=== PATIENT | female | born 1965 | race Caucasian/White ===

== ENCOUNTER 2018-01-30 10:19 | Emergency (ER) | payer SELFPAY ==
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
[2018-01-30] MEDS ORDERED: HYDROCODONE/APAP 10/325 TAB ONE (10:46)
[2018-01-30] MEDS ORDERED: TETANUS & DIPHTHERIA TOX,ADULT 0.5 ML VIAL ONE (10:46)
== END 2018-01-30 11:05 | disposition home or self-care (01) ==
LOC: ER 10:19
DX: T22.132A Burn of first degree of left upper arm, initial encounter (principal); K75.9 Inflammatory liver disease, unspecified; F17.210 Nicotine dependence, cigarettes, uncomplicated; T31.0 Burns involving less than 10% of body surface; X08.8XXA Exposure to other specified smoke, fire and flames, initial encounter; Y93.9 Activity, unspecified; Y92.009 Unspecified place in unspecified non-institutional (private) residence as the place of occurrence of the external cause; Y99.9 Unspecified external cause status; Z23 Encounter for immunization
CPT/HCPCS: 90714; 99283

== ENCOUNTER 2021-08-15 15:25 | Emergency (ER) | payer SELFPAY ==
--- OUTSIDE RECORDS SUMMARY | 2021-08-15 15:29 | XMS REPORT | Continuity of Care Document ---
:1965 Author Organization [facility] t Address [address] [place] [address] Care Team Providers Name Role Phone Pcp, Does Not Have A Primary Care Physician Kassy TORRES Attending Clinician Unavailable Jessica MERCEDES S Attending Clinician Andres MERCEDES Attending Clinician Doctor Unassigned, Name Attending Clinician Unavailable Payers Payer Name Policy Type Policy Number Effective Date Expiration Date S ource Problems Condition Condition Condition Status Onset Resolution Last Treating Co mments Source Name Details Category Date Date Treatment Clinician Date No known No known Disease Unive rs active active ity of problems problems [facility] Allergies, Adverse Reactions, Alerts Allergy Allergy Status Severity Reaction(s) Onset Inactive Treating Comm ents Source Name Type Date Date Clinician NO KNOWN Drug Active Univers ALLERGIE Class ity of S [facility] Social History Social Habit Start Date Stop Date Quantity Comments Source History [facility] University o f [facility] History [facility] University o f Alcohol Std Drinks [facility] History [facility] University o f Alcohol Binge [facility] [place] History of tobacco Cigarette Smoker University of use [facility] Exposure to Not sure University of SARS-CoV-2 (event) [facility] Alcohol intake 2020-05-19 2020-05-19 Current University of 00:00:00 00:00:00 non-drinker of [facility] alcohol Branch (finding) Cigarettes smoked 2012-10-07 2012-10-07 Univers ity of current (pack per 00:00:00 00:00:00 [facility] - Reported Branch Cigarette 2012-10-07 2012-10-07 University of pack-years 00:00:00 00:00:00 [facility] Tobacco use and 2012-10-07 2012-10-07 Never used Universit y of exposure 00:00:00 00:00:00 [facility] Alcohol Comment 2012-10-07 2012-10-07 H/O alcohol Universi ty of 00:00:00 00:00:00 abuse [facility] Sex [birth year] Universit y of 00:00:00 00:00:00 [facility] Smoking Status Start Date Stop Date Source Current every day smoker 2012-10-07 00:00:00 Uni versity of [facility] Medications Ordered Filled Start Stop Current Ordering Indication Dosage Frequency Signature Comments Components Source Medication Medication Date Date Medication? Clinician (SIG) Name Name ondansetron No 4mg 4 mg, Univ ers (ZOFRAN-ODT 08-14 Oral, ity of ) 13:15: 12:08 ONCE, 1 [place] disintegrat 00 :00 dose, On Medi melly ing tablet [facility] 4 mg 08/14/21 at 0715, Routine FENTanyl PF No 50ug 50 mcg, Un jair (SUBLIMAZE 08-14 Intramuscu it y of (PF)) 13:15: 12:06 lar, ONCE, [place] injection 00 :00 1 dose, On Medi melly 50 mcg [facility] 08/14/21 at 0715, Routine butalbital- Yes [id number] 1{tbl} Take 1 Univers acetaminoph 1-17 tablet by ity of en-caff 00:00: mouth [place] 50-325-40 00 every 6 Medical mg tablet (six) Branch hours as needed (Headache) . ondansetron 2020- No 4mg 4 mg, Univ ers (ZOFRAN 10-09-14 Intramuscu ity o f (PF)) 02:30: 01:29 lar, ONCE, [place] injection 4 00 :00 1 dose, Medic al mg Sat Branch 10/08/20 at 2030, JACKI NaCl 0.9% 2020- No 1000mL at 999 Uni vers (NS) bolus 3-13 03-14 mL/hr, ity of infusion 23:00: 01:07 1,000 mL, Les as 1,000 mL 00 :00 IV Medical Infusion, Branch ONCE, 1 dose, 10/08/20 at 1700, STAT ondansetron 2020- No 4mg 4 mg, Slow Univers (ZOFRAN 3-13 03-13 IV Push, ity of (PF)) 23:00: 23:31 ONCE, 1 [place] injection 4 00 :00 dose, Sat Med ical mg 10/08/20 at Branch 1700, JACKI ondansetron Yes [id number] 4mg Take 1 Univers 4 mg 3-13 tablet by ity of disintegrat 00:00: mouth [place] ing tablet 00 every 4 Medica l (four) Branch hours as needed for Nausea and Vomiting (N/V). dicyclomine Yes [id number] 10mg Take 1 Univers (BENTYL) 10 3-13 capsule by it y of mg capsule 00:00: [place] (four) Medical times Branch daily. ondansetron Yes [id number] 4mg Take 1 Univers 4 mg 3-13 tablet by ity of disintegrat 00:00: mouth [place] ing tablet 00 every 4 Medica l (four) Branch hours as needed for Nausea and Vomiting (N/V). dicyclomine Yes [id number] 10mg Take 1 Univers (BENTYL) 10 3-13 capsule by it y of mg capsule 00:00: [place] (four) Medical times Branch daily. iohexol 2019-07- No 120mL 120 mL, Unive rs (OMNIPAQUE 0-23 05-20 Intravenou it y of 350 02:45: 02:45 s, ONCE, 1 [place] BULK-150 00 :00 dose, Lou Medica l mL) 05/19/20 Branch injection at 2145, 120 mL Routine acetaminoph Yes 1{tbl} Take 1 Un jair en-codeine 6-09 tablet by ity of 300-30 mg 00:00: mouth [place] tablet 00 every 6 Medical (six) Branch hours as needed for Pain (scale 4-6) for up to 30 doses. acetaminoph 2017-0 Yes 1{tbl} Take 1 Un jair en-codeine 6-09 tablet by ity of 300-30 mg 00:00: mouth [place] tablet 00 every 6 Medical (six) Branch hours as needed for Pain (scale 4-6) for up to 30 doses. acetaminoph Yes 1{tbl} Take 1 Un jair en-codeine 6-09 tablet by ity of 300-30 mg 00:00: mouth [place] tablet 00 every 6 Medical (six) Branch hours as needed for Pain (scale 4-6) for up to 30 doses. acetaminoph Yes 1{tbl} Take 1 Un jair en-codeine 6-09 tablet by ity of 300-30 mg 00:00: mouth [place] tablet 00 every 6 Medical (six) Branch hours as needed for Pain (scale 4-6) for up to 30 doses. acetaminoph Yes 1{tbl} Take 1 Un jair en-codeine 6-09 tablet by ity of 300-30 mg 00:00: mouth [place] tablet 00 every 6 Medical (six) Branch hours as needed for Pain (scale 4-6) for up to 30 doses. VITAMIN B Yes 1{tbl} Take 1 Tab Univers COMPLEX 3-12 by mouth ity of ORAL 21:36: daily. [address] DOCOSAHEXAN Yes 1{tbl} Take 1 Tab Univers OIC 3-12 by mouth ity of ACID/EPA 21:36: daily. [place] (FISH OIL 38 Medical ORAL) [place] VITAMIN B Yes 1{tbl} Take 1 Tab Univers COMPLEX 3-12 by mouth ity of ORAL 21:36: daily. [address] DOCOSAHEXAN Yes 1{tbl} Take 1 Tab Univers OIC 3-12 by mouth ity of ACID/EPA 21:36: daily. [place] (FISH OIL 38 Medical ORAL) [place] VITAMIN B Yes 1{tbl} Take 1 Tab Univers COMPLEX 3-12 by mouth ity of ORAL 21:36: daily. [address] DOCOSAHEXAN Yes 1{tbl} Take 1 Tab Univers OIC 3-12 by mouth ity of ACID/EPA 21:36: daily. [place] (FISH OIL 38 Medical ORAL) [place] VITAMIN B Yes 1{tbl} Take 1 Tab Univers COMPLEX 3-12 by mouth ity of ORAL 21:36: daily. [place] 38 Medical Branch DOCOSAHEXAN Yes 1{tbl} Take 1 Tab Univers OIC 3-12 by mouth ity of ACID/EPA 21:36: daily. [place] (FISH OIL 38 Medical ORAL) Branch RUTIN/HESP/ Yes 2{tbl} Take 2 Un jair BIOFLAV/C/H 3-12 Tabs by ity o f ERB#196 21:35: mouth [place] (BIOFLEX 30 daily. Medical ORAL) Branch RUTIN/HESP/ Yes 2{tbl} Take 2 Un jair BIOFLAV/C/H 3-12 Tabs by ity o f ERB#196 21:35: mouth [place] (BIOFLEX 30 daily. Medical ORAL) Branch RUTIN/HESP/ Yes 2{tbl} Take 2 Un jair BIOFLAV/C/H 3-12 Tabs by ity o f ERB#196 21:35: mouth [place] (BIOFLEX 30 daily. Medical ORAL) Branch RUTIN/HESP/ Yes 2{tbl} Take 2 Un jair BIOFLAV/C/H 3-12 Tabs by ity o f ERB#196 21:35: mouth [place] (BIOFLEX 30 daily. Medical ORAL) Branch ASPIRIN Yes 1{tbl} Take 1 Tab Un jair (ASPIR-81 3-12 by mouth ity of ORAL) 21:34: daily. [place] [address] Medical Branch Ibuprofen Yes 4{tbl} Take 4 Univ ers (ADVIL 3-12 Tabs by ity of LIQUI-GEL) 21:34: mouth [place] 200 mg Cap 53 daily. Medical Branch Acetaminoph Yes 2{tbl} Take 2 Un jair en 3-12 Tabs by ity of (NON-ASPIRI 21:34: mouth [place] N EXTRA 53 needed. Medical STRENGTH) Branch 500 mg Cap OMEPRAZOLE Yes 1{tbl} Take 1 Tab Univers (PRILOSEC 3-12 by mouth ity of ORAL) 21:34: daily. [place] 53 Medical Branch ASPIRIN Yes 1{tbl} Take 1 Tab Un jair (ASPIR-81 3-12 by mouth ity of ORAL) 21:34: daily. [address] Ibuprofen Yes 4{tbl} Take 4 Univ ers (ADVIL 3-12 Tabs by ity of LIQUI-GEL) 21:34: mouth [place] 200 mg Cap 53 daily. [facility] Branch Acetaminoph Yes 2{tbl} Take 2 Un jair en 3-12 Tabs by ity of (NON-ASPIRI 21:34: mouth [place] EXTRA 53 needed. Medical STRENGTH) Branch 500 mg Cap OMEPRAZOLE Yes 1{tbl} Take 1 Tab Univers (PRILOSEC 3-12 by mouth ity of ORAL) 21:34: daily. [address] ASPIRIN Yes 1{tbl} Take 1 Tab Un jair (ASPIR-81 3-12 by mouth ity of ORAL) 21:34: daily. [address] Ibuprofen Yes 4{tbl} Take 4 Univ ers (ADVIL 3-12 Tabs by ity of LIQUI-GEL) 21:34: mouth [place] 200 mg Cap 53 daily. [facility] Acetaminoph Yes 2{tbl} Take 2 Un jair en 3-12 Tabs by ity of (NON-ASPIRI 21:34: mouth [place] EXTRA 53 needed. Medical STRENGTH) Branch 500 mg Cap OMEPRAZOLE Yes 1{tbl} Take 1 Tab Univers (PRILOSEC 3-12 by mouth ity of ORAL) 21:34: daily. [address] ASPIRIN Yes 1{tbl} Take 1 Tab Un jair (ASPIR-81 3-12 by mouth ity of ORAL) 21:34: daily. [address] Ibuprofen Yes 4{tbl} Take 4 Univ ers (ADVIL 3-12 Tabs by ity of LIQUI-GEL) 21:34: mouth [place] 200 mg Cap 53 daily. [facility] Acetaminoph Yes 2{tbl} Take 2 Un jair en 3-12 Tabs by ity of (NON-ASPIRI 21:34: mouth [place] EXTRA 53 needed. Medical STRENGTH) Branch 500 mg Cap OMEPRAZOLE Yes 1{tbl} Take 1 Tab Univers (PRILOSEC 3-12 by mouth ity of ORAL) 21:34: daily. [address] VITAMIN B Yes 1{tbl} Take 1 Tab Univers COMPLEX 3-12 by mouth ity of ORAL 16:36: daily. [place] [address] Medical Branch DOCOSAHEXAN Yes 1{tbl} Take 1 Tab Univers OIC 3-12 by mouth ity of ACID/EPA 16:36: daily. [place] (FISH OIL 38 Medical ORAL) Branch RUTIN/HESP/ Yes 2{tbl} Take 2 Un jair BIOFLAV/C/H 3-12 Tabs by ity o f ERB#196 16:35: mouth [place] (BIOFLEX 30 daily. Medical ORAL) Branch ASPIRIN Yes 1{tbl} Take 1 Tab Un jair (ASPIR-81 3-12 by mouth ity of ORAL) 16:34: daily. [address] Branch Ibuprofen Yes 4{tbl} Take 4 Univ ers (ADVIL 3-12 Tabs by ity of LIQUI-GEL) 16:34: mouth [place] 200 mg Cap 53 daily. Medical Branch Acetaminoph Yes 2{tbl} Take 2 Un jair en 3-12 Tabs by ity of (NON-ASPIRI 16:34: mouth [place] EXTRA 53 needed. Medical STRENGTH) Branch 500 mg Cap OMEPRAZOLE Yes 1{tbl} Take 1 Tab Univers (PRILOSEC 3-12 by mouth ity of ORAL) 16:34: daily. [address] Immunizations Ordered Filled Immunization Date Status Comments Sour e Immunization Name Name [facility] 2012-10-07 Completed [facility] 00:00:00 [facility] TDAP 2012-10-07 Completed [facility] 00:00:00 [facility] TDAP 2012-10-07 Completed University 00:00:00 [facility] TDAP 2012-10-07 Completed University 00:00:00 [facility] TDAP 2012-10-07 Completed [facility] 00:00:00 [facility] Vital Signs Vital Name Observation Time Observation Value Comments Source Systolic blood 2021-08-14 11:46:00 120 mm[Hg] Univer sity of pressure [facility] Diastolic blood 2021-08-14 11:46:00 72 mm[Hg] Unive rsity of pressure [facility] Heart rate 2021-08-14 11:46:00 84 /min [facility] [place] [facility] Body temperature 2021-08-14 11:46:00 36.67 Dayanna Univ ersity [facility] [place] [facility] Respiratory rate 2021-08-14 11:46:00 18 /min Univ [facility] [place] [facility] Body height 2021-08-14 11:46:00 154.9 cm [facility] [place] [facility] Body weight 2021-08-14 11:46:00 59.194 kg [facility] [place] [facility] BMI 2021-08-14 11:46:00 24.66 kg/m2 [facility] [place] [facility] Oxygen saturation in 2021-08-14 11:46:00 100 /min University of Arterial blood by [place] [employer] melly Pulse oximetry Branch Systolic blood 2020-10-09 01:31:00 121 mm[Hg] Univer sity of pressure [place] [facility] Diastolic blood 2020-10-09 01:31:00 74 mm[Hg] Unive rsity of pressure [place] [facility] Heart rate 2020-10-09 01:31:00 85 /min [facility] [place] [facility] Respiratory rate 2020-10-09 01:31:00 17 /min [facility] [place] [facility] Oxygen saturation in 2020-10-09 01:31:00 99 /min University of Arterial blood by [place] [employer] melly Pulse oximetry Branch Body temperature 2020-10-08 21:30:00 36.06 Dayanna [facility] [place] [facility] Body weight 2020-10-08 21:30:00 58.968 kg [facility] [place] [facility] BMI 2020-10-08 21:30:00 24.56 kg/m2 [facility] [place] [facility] Systolic blood 2020-05-20 03:00:00 127 mm[Hg] Univer sity of pressure [place] [facility] Diastolic blood 2020-05-20 03:00:00 77 mm[Hg] Unive rsity of pressure [place] [facility] Heart rate 2020-05-20 03:00:00 63 /min [facility] [place] [facility] Respiratory rate 2020-05-20 03:00:00 22 /min Univ [facility] [place] [facility] Oxygen saturation in 2020-05-20 03:00:00 98 /min University of Arterial blood by [place] [employer] melly Pulse oximetry Branch Body temperature 2020-05-20 00:10:00 37.5 Dayanna [facility] [place] [facility] Body weight 2020-05-20 00:10:[address] [facility] BMI 2020-05-20 00:10:00 22.11 kg/m2 [facility] Procedures Procedure Date / Time Performing Clinician Source Performed CT HEAD WO CONTRAST 2021-08-14 12:17:47 Tod Torres [facility] CONSENT/REFUSAL FOR 2021-08-14 11:37:36 Doctor Unassigned, No Un [facility] DIAGNOSIS AND TREATMENT Name [facility] CT ABDOMEN PELVIS WO 2020-10-09 00:25:25 Tim Campos [facility] CONTRAST [facility] URINALYSIS 2020-10-09 00:00:00 Andres Tim [facility] ADC / LCC - DRUG SCREEN 2020-10-09 00:00:00 Tim Campos [facility] TRIAGE [facility] LIPASE 2020-10-08 23:09:00 Andres [facility] HEPATIC FUNCTION PANEL 2020-10-08 23:09:00 Tim Campos [facility] ([id number]) (ALB,T.PRO,BILI [facility] T,BU/BC,ALT,AST,ALK PHOS) BASIC METABOLIC PANEL 2020-10-08 23:09:00 Tim Campos [facility] (NA, K, CL, CO2, Medical Branch GLUCOSE, BUN, CREATININE, CA) ETHANOL 2020-10-08 23:09:00 Tim Campos [facility] CBC WITH DIFF 2020-10-08 23:09:00 Tim Campos [facility] PROTHROMBIN TIME / INR 2020-10-08 23:09:00 Tim Campos [facility] ACTIVATED PARTIAL 2020-10-08 23:09:00 [facility] NOTICE OF PRIVACY 2020-10-08 21:27:27 Doctor Unassigned, No [facility] PRACTICES [facility] CONSENT/REFUSAL FOR 2020-10-08 21:23:03 Doctor Unassigned, No [facility] CT ABDOMEN PELVIS W 2020-05-20 02:31:58 Tod Torres [facility] CONTRAST [facility] LIPASE 2020-05-20 00:34:00 Tod Torres [facility] TROPONIN I 2020-05-20 00:34:00 Tod Torres [facility] COMP. METABOLIC PANEL 2020-05-20 00:34:00 Tod Torres [facility] ([id number]) [facility] CBC WITH DIFF 2020-05-20 00:34:00 Tod Torres [facility] URINALYSIS 2020-05-20 00:34:00 Tod Torres [facility] EKG-12 LEAD 2020-05-20 00:14:17 Tod Torres [facility] NOTICE OF PRIVACY 2020-05-19 23:59:58 Doctor Unassigned, No Univ [facility] PRACTICES Name [facility] CONSENT/REFUSAL FOR 2020-05-19 23:59:43 [facility], No [facility] Encounters Start End Encounter Admission Attending Care Care Encounter Source Date/Time Date/Time Type Type Clinicians Facility Department ID 2021-08-14 2021-08-14 Emergency X [facility] ERT [id number] Univers 05:49:00 [facility]00[facility] 2021-08-14 2021-08-14 Emergency [facility] [id number] Univers 05:49:00 07:00:00 Tod LIMA [id number] ity of [place] [address] [place] [id number] 2020-10-08 2020-10-08 Emergency Campos, [facility] [id number] Univers 15:33:00 19:53:00 Tim Lima [id number] i ty of [place] [address] [place] [address] [id number] [place] [address] Branch 2020-10-08 2020-10-08 Emergency X [facility] ERT [id number] Univers 15:24:00 15:24:00 ity of [facility] 2020-10-08 2020-10-08 Orders Doctor JOSELITO [id number] Univers 00:00:00 00:00:00 Only Unassigned, MICHELL [id number] ity of [facility] 4.2.7.2.686 Les as [id number] [facility] 009 [place] 2020-05-19 2020-05-19 Emergency [facility], [facility] [id number] Univers 19:12:00 23:04:00 Tod [place] [id number] ity of [place] 4.2.7.2.686 [facility] [id number] [facility] 084 [place] 2020-05-19 2020-05-19 Emergency X [facility] ERT [id number] Univers 19:00:00 19:00:00 ity [facility] 2020-05-19 2020-05-19 Orders Doctor JOSELITO [id number] Univers 00:00:00 00:00:00 Only Unassigned, MICHELL [id number] ity of [facility] 4.2.7.2.686 Les as [id number] [address] Results Test Description Test Time Test Comments Results Result Comments Source [facility] - DRUG SCREEN TRIAGE 2020-10-09 01:07:36 Test Item Value Reference Range Interpretation Comme nts BENZO U (test code = 1081184839) Negative Negative LUTHER U (test code = 6723983473) Negative Negative AMPHET (test code = 0798239861) Presumptive Positive Negative A THC (test code = 8363138131) Negative Negative METHADONE (test code = 9253274015) Negative Negative Meth U (test code = 1146952999) Presumptive Positive Negative A OPIATES (test code = 9456401454) Negative Negative Cocaine Metabolite (test code = Negative Negative 4359401823) PROPOXY (test code = 0561879485) Negative Negative Tric U (test code = 8084523054) Negative Negative PCP (test code = 4473270309) Negative Negative OXYCOD (test code = 2259800605) Negative Negative ALMA (test code = ALMA) Urine Drug Cutoff Ranges Benzodiazepines: ? ? 150 ng/mLBarbiturates: ?200 ng/mLAmphetamine: ? 500 ng/mLCannabinoids: ?50 ?ng/mLMethadone: ? 200 ng/mLMethamphetamine: ? ? 500 ng/mL Opiates: ? 100 ng/mL or 2000 ng/mLCocaine: ? 150 ng/mLPropoxyphene: ?300 ng/mLTricyclics: ?300 ng/mLOxycodone: ? 100 ng/mLPCP: ? 25 ?ng/mL The results are to be used only for medical (i.e., treatment) purposes. Unconfirmed screening results must not be used for non-medical purposes (e.g., employment testing, legal testing). Lab Interpretation (test code = Abnormal 26640-4) [facility] 00:59:40 Test Item Value Reference Range Interpretation Comments APPEARANCE (test code = Clear Clear 5204481731) COLOR (test code = Yellow Yellow 0184270353) PH (test code = 4.8-8.0 1212378083) SP GRAVITY (test code = 1.003-1.030 4732825723) GLU U QUAL (test code = Normal Normal 3315960621) BLOOD (test code = Negative Negative 1426784513) KETONES (test code = Negative Negative 0231844659) PROTEIN (test code = Negative Negative 2887-8) UROBILIN (test code = Normal Normal 4653341733) BILIRUBIN (test code = Negative Negative 0781901691) NITRITE (test code = Negative Negative 3944671517) LEUK JOHANNA (test code = Negative Negative 1562492936) RBC/HPF (test code = See_Comment H [Autom ated message] 4069630736) The system [employer] generated this result transmitted ref erence range: 0 - 3 HP F. The reference range was not used to int erpret this result as normal/abnormal . WBC/HPF (test code = See_Comment [Autom ated message] 8933113171) The system [employer] generated this result transmitted ref erence range: 0 - 5 HP F. The reference range was not used to int erpret this result as normal/abnormal . BACTERIA (test code = Few Negative A 5641988158) MUCOUS (test code = Slight Negative LPF A 2921196962) SQ EPITH (test code = HPF 3698354301) HYAL CAST (test code = See_Comment [Aut omated message] 0074385725) The system [employer] generated this result transmitted ref erence range: <=2 LPF. The reference range was not used to int erpret this result as normal/abnormal . Lab Interpretation (test Abnormal code = 44909-8) [facility] [id number] 00:46:29 No acute abdominal pelvic process. No hydronephrosis or radiopaque nephrolithiasis. Preliminary Report Dictated by Resident: Rohan Kohli ?MD Nadege., have reviewed this study and agree withthe above report.EXAM: CT ABDOMEN AND PELVIS WITHOUT CONTRAST HISTORY: Pt reports that she ate at [employer] and ate some "fried okra andthen started having profuse nausea and vomiting.? COMPARISON: CT abdomen and pelvis 04/19/2020 and 01/04/2017. TECHNIQUE AND FINDINGS: Contiguous axial imaging from the level of the lungbases through the proximal thighs was performed without the intravenousadministration of contrast. Coronal and sagittal reconstructions wereobtained. FINDINGS: Limited evaluation of internal organs due to lack of IV contrast. LOWER THORAX: A 1.2 cm right middle lobe calcified granuloma isredemonstrated. No cardiomegaly. LIVER: No focal hepatic lesions. ?Normal liver contour. GALLBLADDER AND BILIARY TREE: No biliary ductal dilation. ?No gallbladderwall thickening. SPLEEN: No splenomegaly. PANCREAS: No ductal dilation or masses. ADRENAL GLANDS: No adrenal nodules. KIDNEYS: No hydronephrosis, stones, or contour deforming masses. PERITONEUM AND RETROPERITONEUM: No free air or fluid. LYMPH NODES: No lymphadenopathy. GI TRACT: No dilation or wall thickening. The appendix is unremarkable(2:99). Colonic diverticulosis with no signs of acute diverticulitis. PELVIS/BLADDER: Unremarkable. VESSELS: Mild aortoiliac atherosclerotic calcification. BONES AND SOFT TISSUES: No suspicious lytic or sclerotic bony lesions.Dextrocurvature of the lumbar spine is seen. [facility], Radiant ResultsInft User - 10/08/2020 6:47 PM CSTEXAM: CT ABDOMEN AND PELVIS WITHOUT CONTRASTHISTORY: Pt reports that she ate at [employer] and ate some "fried okra andthen started having profuse nausea and vomiting.?COMPARISON: CT abdomen and pelvis 04/19/2020 and 01/04/2017.TECHNIQUE AND FINDINGS: Contiguous axial imagi ng from the level of the lungbases through the proximal thighs was performed without the intravenousadministration of contrast. Coronal and sagittal reconstructions wereobtained.FINDINGS:Limited evaluation of internal organs due to lack of IV contrast.LOWER THORAX: A 1.2 cm right middle lobe calcified granuloma isredemonstrated. No cardiomegaly.LIVER: No focal hepatic lesions. Normal liver contour.GALLBLADDER AND BILIARY TREE: No biliary ductal dilation. No gallbladderwall thickening.SPLEEN: No splenomegaly.PANCREAS: No ductal dilation or masses.ADRENAL GLANDS: No adrenal nodules.KIDNEYS: No hydro nephrosis, stones, or contour deforming masses.PERITONEUM AND RETROPERITONEUM: No free air or fluid.LYMPH NODES: No lymphadenopathy.GI TRACT: No dilation or wall thickening. The appendix is unremarkable(2:99). Colonic diverticulosis with no signs of acute diverticulitis.PELVIS/BLADDER: Unremarkable.VESSELS: Mild aortoiliac atherosclerotic calcification.BONES AND SOFT TISSUES: No suspicious lytic or sclerotic bony lesions.Dextrocurvature of the lumbar spine is seen.IMPRESSIONNo acute abdominal pelvicprocess.No hydronephrosis or radiopaque nephrolithiasis.Preliminary Report Dictated by Resident: Rohan Vo MD., have reviewed this study and agree withthe above report.[facility] 23:56:28 Test Item Value Reference Range Interpretation Comments ALCOHOL (test code = <10 mg/dL 6816515907) ALMA (test code = ALMA) <10 [id number] Toxic>100 Depression of UNIX MANAGER>400 Fatalities Reported [facility] 23:44:04 Test Item Value Reference Range Interpretation Comments APTT Patient (test See_Comment [Automat ed code = 3173-2) message] The system which generated this result transmitted reference range : 23 - 38 Seconds . The reference range was not used to interpr et this result as normal/abnormal . ALMA (test code = ALMA) The [facility] patient population mean normal value for aPTT is 30 seconds. Lab Interpretation Normal (test code = 11736-5) [facility] / [id number] 23:41:44 Test Item Value Reference Range Interpretation Comments PROTIME PATIENT (test See_Comment L [Auto mated message] code = 5964-2) The system [employer] generated this result transmitted ref erence range: 12.0 - 1 4.7 Seconds. The reference range was not used to int erpret this result as normal/abnormal . INR (test code = 6301-6) Nor mal INR <1.1; Warfarin Therap eutic range 2.0 to 3. 0 or 2.5 to 3.5, dep ending upon the indica tions. Lab Interpretation (test Abnormal code = 23982-8) [facility] (NA, K, CL, CO2, GLUCOSE, BUN, CREATININE, CA)2020-10-08 23:39:23 Test Item Value Reference Range Interpretation Comments NA (test code = 138 mmol/L 135-145 5019749834) K (test code = 4.3 mmol/L 3.5-5.0 6327505281) CL (test code = 105 mmol/L 98-108 4143902168) CO2 TOTAL (test code = 25 mmol/L 23-31 2864936985) AGAP (test code = 2-16 9380089001) BUN (test code = 20 mg/dL 7-23 9999706364) GLUCOSE (test code = 97 mg/dL 70-110 6462090212) CREATININE (test code 0.54 mg/dL 0.50-1.04 = 0973541962) CALCIUM (test code = 9.2 mg/dL 8.6-10.6 0465599093) eGFR Calculation mL/min/1.73m2 (Non-) (test code = 4913971520) eGFR Calculation mL/min/1.73m2 () (test code = 6938565685) ALMA (test code = ALMA) Association of Glomerular Filtration Rate (GFR) and Staging of Kidney Disease* + -+ + ---+| GFR (mL/min/1.73 m2) ?| With Kidney Damage ?| ?Without Kidney Damage+ -------+ ------+ ---------+| ?>90 ?| ?Stage one ?| ? Normal ?+ --+ -+ ----+| ?60-89 ?| ?Stage two ?| ? Decreased GFR ? + -+ + ---+| ?30-59 ?| ?Stage three ?| ? Stage three ? + -+ + ---+| ?15-29 ?| ?Stage four ? | ? Stage four ?+ --+ -+ ----+| ?<15 (or dialysis) ? ?| ?Stage five ? | ? Stage five ?+ --+ -+ ----+ *Each stage assumes the associated GFR level has been in effect for at least three months. ?Stages 1 to 5, with or without kidney disease, indicate chronic kidney disease. Notes: Determination of stages one and two (with eGFR >59mL/min/1.73 m2) requires estimation of kidney damage for at least three months as defined by structural or functional abnormalities of the kidney, manifested by either:Pathological abnormalities or Markers of kidney damage (including abnormalities in the composition of the blood or urine or abnormalities in imaging tests). [facility] (ALB, T.PRO, BILI T, BU/BC, ALT, AST, ALK PHOS)2020-10-08 23:39:23 Test Item Value Reference Range Interpretation Comments TOTAL BILI (test code = 2145143705) 0.5 mg/dL 0.1-1.1 BILI UNCON (test code = 1010621586) 0.5 mg/dL 0.1-1.1 BILI CONJ (test code = 9509361821) 0.0 mg/dL 0.0-0.3 T PROTEIN (test code = 8978380320) 7.7 g/dL 6.3-8.2 ALBUMIN (test code = 6606171030) 4.4 g/dL 3.5-5.0 ALK PHOS (test code = 2135519613) 100 U/L 34-122 ALTv (test code = 1742-6) 23 U/L 5-35 AST(SGOT) (test code = 0441408763) 23 U/L 13-40 Lab Interpretation (test code = Normal 45855-7) [facility] [id number] 23:39:03 Test Item Value Reference Range Interpretation Comments LIPASE (test code = 2212895229) 68 U/L 0-220 Lab Interpretation (test code = Normal 25056-0) [facility] with [id number] 23:32:05 Test Item Value Reference Range Interpretation Comments WBC (test code = See_Comment H [Automated 6690-2) message] The system which generated this result transmit arnol reference range : 4.30 - 11.10 10*3/?L. The reference range was not used to interpret this result as normal/abnormal . RBC (test code = See_Comment H [Automated 789-8) message] The system which generated this result transmit arnol reference range : 3.93 - 5.25 10*6/?L. The reference range was not used to interpret this result as normal/abnormal . HGB (test code = 15.9 g/dL 11.6-15.0 H 718-7) HCT (test code = 50.6 % 35.7-45.2 H 4544-3) MCV (test code = 89.9 fL 80.6-95.5 787-2) MCH (test code = 28.2 pg 25.9-32.8 785-6) MCHC (test code = 31.4 g/dL 31.6-35.1 L 786-4) RDW-SD (test code = 49.7 fL 39.0-49.9 12746-1) RDW-CV (test code = 15.0 % 12.0-15.5 788-0) PLT (test code = See_Comment L [Automated 777-3) message] The system which generated this result transmit arnol reference range : 166 - 358 10*3/ ?L. The reference range was not u sed to interpret th is result as normal/abnormal . MPV (test code = 13.3 fL 9.5-12.9 H 73987-3) NRBC/100 WBC (test See_Comment [Automat ed code = 3562925177) message] The system which generated this result transmit arnol reference range : 0.0 - 10.0 /100 WBCs. The reference range was not used to interpret this result as normal/abnormal . NRBC x10^3 (test code <0.01 See_Comment [Auto mated = 3706199211) message] The system which generated this result transmit arnol reference range : 10*3/?L. The reference range was not used to interpret this result as normal/abnormal . GRAN MAT (NEUT) % 80.2 % (test code = 770-8) IMM GRAN % (test code 0.40 % = 5493170715) LYMPH % (test code = 10.2 % 736-9) MONO % (test code = 7.9 % 5905-5) EOS % (test code = 1.1 % 713-8) BASO % (test code = 0.2 % 706-2) GRAN MAT x10^3(ANC) 11.23 10*3/uL 1.88-7.09 H (test code = 8984458805) IMM GRAN x10^3 (test 0.05 10*3/uL 0.00-0.06 code = 6645003478) LYMPH x10^3 (test code 1.43 10*3/uL 1.32-3.29 = 731-0) MONO x10^3 (test code 1.10 10*3/uL 0.33-0.92 H = 742-7) EOS x10^3 (test code = 0.16 10*3/uL 0.03-0.39 711-2) BASO x10^3 (test code 0.03 10*3/uL 0.01-0.07 = 704-7) Lab Interpretation Abnormal (test code = 92092-3) [facility] [id number] 03:53:50 1. Vascular findings suggestive of congestive pelvic syndrome includingdilated left gonadal vein. Correlation with physical findings isrecommended.2. Sigmoid diverticula without diverticulitis.3. Milddilatation of the common bile duct up to 0.8 cm with nointraluminal stone or obstructing mass. If there are physical andlaboratory findings suggestive of obstructive hyperbilirubinemia, MRI ofthe abdomen with MRCP may be obtained for further evaluation. Preliminary Report Dictated by Resident: Alex Villagomez MD., have reviewed this study and agree with the abovereport.CT ABDOMEN PELVIS W CONTRAST HISTORY: 55 years-old; Female; Abd pain, acute, generalized COMPARISON: 01/04/2017 TECHNIQUE AND FINDINGS: Contiguous axial imaging from the level of the lungbases through the pubic symphysis was performed after the uncomplicatedadministration of 120 cc of intravenous Omnipaque contrast. Coronal andsagittal reconstructions were obtained. ?Auto mA and/or iterativereconstruction were used to reduce radiation dose. FINDINGS: LOWER THORAX: Calcified granuloma in the right middle lobe measuring 1.3 cm(2:8), unchanged. LIVER: No focal hepatic lesions. Normal contour. GALLBLADDER AND BILIARY TREE: No intrahepatic biliary ductal dilation. Nogallbladder wall thickening. The common bile is mildly dilated measuring0.8 cm in largest diameter with no identifiable intraluminal stone orobstructing soft tissue mass. SPLEEN: Unremarkable. PANCREAS: No ductal dilation or masses. ADRENAL GLANDS: No adrenal mass. KIDNEYS: No hydronephrosis, stones, or masses. Homogeneous and symmetricalenhancement.PERITONEUM AND RETROPERITONEUM: No free air or fluid collection. LYMPH NODES: No intra-abdominal or pelvic lymph node enlargement. GI TRACT: No dilation or bowel wall thickening. Appendix is normal (2:93).Multiple sigmoid diverticula are noted with no CT evidence ofdiverticulitis. PELVIS/BLADDER: Bladder is fully distended with no wall thickening. VESSELS: Dilatation of bilateral gonadal veins, specifically the left sidewith associated engorged and tortuous veins about the uterus. BONES AND SOFT TISSUES: No suspicious lytic or sclerotic bony lesions. Lines/Tubes/Devices/Hardware: None [facility], [facility] User - 05/19/2020 10:54 PM CDTCT ABDOMEN PELVIS W CONTRASTHISTORY: 55 years-old; Female; Abd pain, acute, generalized COMPARISON: 01/04/2017TECHNIQUE AND FINDINGS: Contiguous axial imaging from the level of the lungbases through the pubic symphysis was performed after the uncomplicatedadministration of 120 cc of intravenous Omnipaque contrast. Coronal andsagittal reconstructions were obtained. Auto mA and/or iterativereconstruction were used to reduce radiation dose.FINDINGS:LOWER THORAX: Calcified granuloma in the right middle lobe measuring 1.3 cm(2:8), unchanged.LIVER: No focal hepatic lesions. Normal contour.GALLBLADDER AND BILIARY TREE: No intrahepatic biliary ductal dilation. Nogallbladder wall thickening. The common bile is mildly dilated measuring0.8 cm in largest diameter with no identifiable intraluminal stone orobstructing soft tissue mass.SPLEEN: Unremarkable.PANCREAS: Noductal dilation or masses.ADRENAL GLANDS: No adrenal mass.KIDNEYS: No hydronephrosis, stones, or masses. Homogeneous and symmetricalenhancement.PERITONEUM AND RETROPERITONEUM: No free air or fluid collection.LYMPH NODES: No intra-abdominal or pelvic lymph node enlargement.GI TRACT: No dilation or bowel wall thickening. Appendix is normal (2:93).Multiple sigmoid diverticula are noted with no CT evidence ofdiverticulitis.PELVIS/BLADDER: Bladder is fully distended with no wall thickening.VESSELS: Dilatation of bilateral gonadal veins, specifically the left sidewith associated engorged and tortuous veins about the uterus.BONES AND SOFT TISSUES: No suspicious lytic or sclerotic bony lesions.Lines/Tubes/ Devices/Hardware: NoneIMPRESSION1. Vascular findings suggestive of congestive pelvic syndrome includingdilated left gonadal vein. Correlation with physical findings isrecommended.2. Sigmoid diverticulawithout diverticulitis.3. Mild dilatation of the common bile duct up to 0.8 cm with nointraluminal stone or obstructing mass. If there are physical andlaboratory findings suggestive of obstructive hyperbilirubinemia, MRI ofthe abdomen with MRCP may be obtained for further evaluation.Preliminary ReportDictated by Resident: Alex Dotson MD., have reviewed this study and agree with the abovereport. [facility] with [id number] 02:03:00 Test Item Value Reference Range Interpretation Comments WBC (test code = See_Comment [Automated 8928-2) message] The sy stem which generated this result transmitted reference range : 4.30 - 11.10 10*3/?L. The reference range was not used to interpret this result as normal/abnormal . RBC (test code = See_Comment [Automated 487-8) message] The sy stem which generated this result transmitted reference range : 3.93 - 5.25 10*6/?L. The reference range was not used to interpret this result as normal/abnormal . HGB (test code = 14.0 g/dL 11.6-15 718-7) HCT (test code = 42.8 % 35.7-45.2 4544-3) MCV (test code = 89.4 fL 80.6-95.5 787-2) MCH (test code = 29.2 pg 25.9-32.8 785-6) MCHC (test code = 32.7 g/dL 31.6-35.1 786-4) RDW-SD (test code = 46.5 fL 39-49.9 14086-1) RDW-CV (test code = 14.2 % 12-15.5 788-0) PLT (test code = See_Comment [Automated 777-3) message] The sy stem which generated this result transmitted reference range : 166 - 358 10*3/ ?L. The reference r ramon was not used to interpret this result as normal/abnormal . MPV (test code = 12.3 fL 9.5-12.9 86201-5) NRBC/100 WBC (test See_Comment [Automat ed code = 9290196983) message] The system which generated this result transmitted reference range : 0.0 - 10.0 /100 WBCs. The refer ence range was not u sed to interpret th is result as normal/abnormal . NRBC x10^3 (test code <0.01 See_Comment [Auto mated = 9793250824) message] The s ystem which generated this result transmitted reference range : 10*3/?L. The reference range was not used to interpret this result as normal/abnormal . GRAN MAT (NEUT) % 31.8 % (test code = 770-8) IMM GRAN % (test code 0.20 % = 2639630840) LYMPH % (test code = 52.2 % 736-9) MONO % (test code = 10.4 % 5905-5) EOS % (test code = 4.9 % 713-8) BASO % (test code = 0.5 % 706-2) GRAN MAT x10^3(ANC) 1.75 10*3/uL 1.88-7.09 L (test code = 0722403781) IMM GRAN x10^3 (test <0.03 0-0.06 code = 6599956578) LYMPH x10^3 (test code 2.87 10*3/uL 1.32-3.29 = 731-0) MONO x10^3 (test code 0.57 10*3/uL 0.33-0.92 = 742-7) EOS x10^3 (test code = 0.27 10*3/uL 0.03-0.39 711-2) BASO x10^3 (test code 0.03 10*3/uL 0.01-0.07 = 704-7) Lab Interpretation Abnormal (test code = 85598-5) [facility] [id number] 01:14:00 Test Item Value Reference Range Interpretation Comments TROPONIN I (test <0.012 See_Comment [Automated code = 3655627487) message] The system which generated this result transmitted reference range : <=0.034 ng/mL. The reference range was not used to interpr et this result as normal/abnormal . ALMA (test code = Equal or Less than ALMA) 0.034 ng/ml---Normal ?Note: Cardiac troponin begins to rise 3-4 hours after the onset of ischemia. Repeat in 4-6 hours if the sample was drawn within 3-4 hours of the onset of the symptom and found normal. Between 0.035 and 0.120 ng/mL--- Borderline. Questionable myocardial injury or necrosis ? ?Note: Serial measurement may be necessary to confirm or exclude the diagnosis of myocardial injury or necrosis; Clinical correlation (symptoms, EKGs, imaging studies, and others) required; Repeat in 4-6 hours if clinically indicated. ? Equal or Higher than 0.121 ng/mL---Abnormal. Myocardial Injury or Necrosis Likely ? Biotin has been reported to cause a negative bias, interpret results relative to patient's use of biotin. ? Lab Interpretation Normal (test code = 10553-6) [facility] HospitalUrinalysis2020-[facility] 01:04:00 Test Item Value Reference Range Interpretation Comments APPEARANCE (test code = Hazy Clear A 4558334814) COLOR (test code = Yellow Yellow 3770839330) PH (test code = 4.8-8.0 1582798610) SP GRAVITY (test code = 1.003-1.030 8222042670) GLU U QUAL (test code = Normal Normal 0279079505) BLOOD (test code = Negative Negative 8471038997) KETONES (test code = Negative Negative 2448710855) PROTEIN (test code = Negative Negative 2887-8) UROBILIN (test code = Normal Normal 5702141403) BILIRUBIN (test code = Negative Negative 4480569408) NITRITE (test code = Negative Negative 4386842672) LEUK JOHANNA (test code = Negative Negative 0986106650) RBC/HPF (test code = <1 See_Comment [Autom ated message] 1030581229) The system [employer] generated this result transmitted ref erence range: 0 - 3 HP F. The reference range was not used to int erpret this result as normal/abnormal . WBC/HPF (test code = See_Comment [Autom ated message] 5873955173) The system [employer] generated this result transmitted ref erence range: 0 - 5 HP F. The reference range was not used to int erpret this result as normal/abnormal . BACTERIA (test code = Negative Negative 0511553661) MUCOUS (test code = Slight Negative LPF A 0653241994) Lab Interpretation (test Abnormal code = 23772-3) [facility] Metabolic [id number] 01:02:00 Test Item Value Reference Range Interpretation Comments NA (test code = 136 mmol/L 135-145 9506863132) K (test code = 3.9 mmol/L 3.5-5 0059550517) CL (test code = 102 mmol/L 98-108 5623329400) CO2 TOTAL (test code = 28 mmol/L 23-31 4790062584) AGAP (test code = 2-16 9906482094) BUN (test code = 12 mg/dL 7-23 4284354133) GLUCOSE (test code = 90 mg/dL 70-110 9501722505) CREATININE (test code 0.59 mg/dL 0.5-1.04 = 7799417556) TOTAL BILI (test code 0.5 mg/dL 0.1-1.1 = 9541288809) CALCIUM (test code = 9.7 mg/dL 8.6-10.6 2710246347) T PROTEIN (test code = 7.2 g/dL 6.3-8.2 9750278987) ALBUMIN (test code = 3.9 g/dL 3.5-5 7517846822) ALK PHOS (test code = 69 U/L 34-122 6548675893) ALTv (test code = 25 U/L 5-35 1742-6) AST(SGOT) (test code = 29 U/L 13-40 7239682830) eGFR Calculation mL/min/1.73m2 (Non-) (test code = 5235494486) eGFR Calculation mL/min/1.73m2 () (test code = 3193614390) ALMA (test code = ALMA) Association of Glomerular Filtration Rate (GFR) and Staging of Kidney Disease* + -+ + ---+| GFR (mL/min/1.73 m2) ?| With Kidney Damage ?| ?Without Kidney Damage+ -------+ ------+ ---------+| ?>90 ?| ?Stage one ?| ? Normal ?+ --+ -+ ----+| ?60-89 ?| ?Stage two ?| ? Decreased GFR ? + -+ + ---+| ?30-59 ?| ?Stage three ?| ? Stage three ? + -+ + ---+| ?15-29 ?| ?Stage four ? | ? Stage four ?+ --+ -+ ----+| ?<15 (or dialysis) ? ?| ?Stage five ? | ? Stage five ?+ --+ -+ ----+ *Each stage assumes the associated GFR level has been in effect for at least three months. ?Stages 1 to 5, with or without kidney disease, indicate chronic kidney disease. Notes: Determination of stages one and two (with eGFR >59mL/min/1.73 m2) requires estimation of kidney damage for at least three months as defined by structural or functional abnormalities of the kidney, manifested by either:Pathological abnormalities or Markers of kidney damage (including abnormalities in the composition of the blood or urine or abnormalities in imaging tests). [facility] HospitalLip[facility], [id number] 01:02:00 Test Item Value Reference Range Interpretation Comments LIPASE (test code = 3011708688) 71 U/L 0-220 Lab Interpretation (test code = Normal 76189-4) [facility]
[2021-08-15] MEDS ORDERED: NA CHLORIDE 0.9% 1,000 ML ONE (16:16)
[2021-08-15 16:27] LABS: Absolute Lymphocytes (CBC) 2.3 K/uL (0.7-4.9); Hematocrit 42.2 % (36.0-45.0); Lymphocytes % 37.4 % (15.3-44.8); MPV 10.2 fL (7.6-11.3); RBC Red Blood Cell Count 4.81 M/uL (3.86-4.86)
[2021-08-15 16:31] LABS: Protime INR 0.89
[2021-08-15 16:41] LABS: ALT/SGPT 22 U/L (12-78); AST/SGOT 13 U/L (15-37); Alkaline Phosphatase 79 U/L (45-117); BUN Blood Urea Nitrogen 7 mg/dL (7-18); Bicarbonate 27 mmol/L (21-32); Bilirubin Direct < 0.1 mg/dL (0-0.2); Bilirubin Total 0.2 mg/dL (0.2-1.0); Glucose Level 79 mg/dL (74-106); NT PRO-BNP 241 pg/mL (<125); Protein, Total 6.9 g/dL (6.4-8.2); Sodium Level 138 mmol/L (136-145)
--- NOTE | 2021-08-15 16:56 | RAD REPORT ---
EXAM DESCRIPTION: CT - Head Brain Wo Cont - 08/15/2021 4:34 pm CLINICAL HISTORY: headache COMPARISON: 2014 TECHNIQUE: Computed axial tomography of the head was obtained. IV contrast was not requested. All CT scans are performed using dose optimization technique as appropriate and may include automated exposure control or mA/KV adjustment according to patient size. FINDINGS: An intracranial bleed is not seen . The ventricles are normal in caliber. No extra-axial fluid collection is noted. . Mild sphenoid sinusitis. No fluid within the mastoid IMPRESSION: No acute intracranial abnormality is seen. If patient's symptoms persist MRI of the bra in would be recommended. Mild sphenoid sinusitis
[2021-08-15] MEDS ORDERED: KETOROLAC 30 MG/ML INJ ONE (17:28)
[2021-08-15] MEDS ORDERED: CEFTRIAXONE 1000 MG/VIAL ONE (17:34)
[2021-08-15 17:40] LABS: Urine Blood Negative (Negative); Urine Glucose Negative (Negative); Urine Protein Negative (Negative); Urine pH 6.5 (5.0-7.0)
--- NOTE | 2021-08-15 17:44 | ER ---
Nurse's Notes [facility] Name: Jeanette Villalta Age: 56 yrs Sex: Female : 1965 Arrival Date: 08/15/2021 Time: 15:23 Bed 28 Private MD: Diagnosis: Weakness;Headache;Other acute sinusitis-ethmoid Presentation: 08/15 15:24 Chief complaint: EMS states: Toned out for weakness. Pt reports taking 2 hits of meth jl7 today, was recently at [facility], unsure when they discharged her. Pt is noted to be unkempt and is anxious during triage. Coronavirus screen: Vaccine status: Patient reports being unvaccinated. At this time, the client does not indicate any symptoms associated with coronavirus-19. Ebola Screen: No symptoms or risks identified at this time. Initial Sepsis Screen: Does the patient meet any 2 criteria? No. Patient's initial sepsis screen is negative. Does the patient have a suspected source of infection? No. Patient's initial sepsis screen is negative. Risk Assessment: Do you want to hurt yourself or someone else? Patient reports no desire to harm self or others. Onset of symptoms is unknown. Care prior to arrival: None. 15:24 Method Of Arrival: EMS: [facility] jl7 15:24 Acuity: CHANDLER 3 jl7 Triage Assessment: 15:26 General: Appears in no apparent distress. uncomfortable, unkempt, Behavior is calm, jl7 cooperative, appropriate for age. Pain: Denies pain. Neuro: Level of Consciousness is awake, alert, obeys commands, Oriented to person, place, time, situation. Cardiovascular: Patient's skin is warm and dry. Respiratory: Airway is patent Respiratory effort is even, unlabored, Respiratory pattern is regular, symmetrical. Derm: Skin is pink, warm \\T\\ dry. Historical: - Allergies: 15:26 No Known Allergies; jl7 - Home Meds: 15:26 None [Active]; jl7 - PMHx: 15:26 Hepatitis; Chronic obstructive lung disease; jl7 - Immunization history:: Client reports having NOT received the Covid vaccine. - Social history:: Smoking status: Patient reports the use of cigarette tobacco products, smokes one pack cigarettes per day. Patient uses street drugs, Methamphetamine (Meth). - Family history:: not pertinent. Screenin:38 Abuse screen: Denies threats or abuse. Denies injuries from another. Nutritional ab2 screening: No deficits noted. Tuberculosis screening: No symptoms or risk factors identified. Fall Risk None identified. Assessment: 16:36 General: Appears uncomfortable, Behavior is inappropriate for age. Pain: Complains of ab2 pain in face Pain does not radiate. Pain currently is 10 out of 10 on a pain scale. Quality of pain is described as aching, Pain began 2-3 days ago. Neuro: No deficits noted. Level of Consciousness is awake, alert, obeys commands, Oriented to person, place, time, situation, Appropriate for age Regulatory And Compliance Technician are equal bilaterally Moves all extremities. Speech is normal, Reports headache weakness. Cardiovascular: No deficits noted. Denies chest pain, shortness of breath, Heart tones S1 S2 present Patient's skin is warm and dry. Chest pain is denied. Respiratory: No deficits noted. Airway is patent Breath sounds are clear bilaterally. GI: No deficits noted. No signs and/or symptoms were reported involving the gastrointestinal system. Abdomen is round non-distended, Patient currently denies abdominal pain. : No deficits noted. No signs and/or symptoms were reported regarding the genitourinary system. EENT: No deficits noted. No signs and/or symptoms were reported regarding the EENT system. Derm: No deficits noted. No signs and/or symptoms reported regarding the dermatologic system. Musculoskeletal: No deficits noted. No signs and/or symptoms reported regarding the musculoskeletal system. Vital Signs: 15:24 BP 136 / 86; Pulse 73; Resp 15; Temp 98.1; Pulse Ox 100% on R/A; Weight 58.97 kg (R); jl7 Height 5 ft. 1 in. (154.94 cm) (R); 16:43 BP 116 / 72; Pulse 63; Resp 16; Pulse Ox 100% on R/A; ab2 17:09 BP 117 / 69; Pulse 62; Resp 15; Pulse Ox 100% ; jl7 15:24 Body Mass Index 24.56 (58.97 kg, 154.94 cm) jl7 Pratik Coma Score: 16:19 Eye Response: spontaneous(4). Verbal Response: oriented(5). Motor Response: obeys elizabeth commands(6). Total: 15. ED Course: 15:23 Patient arrived in ED. jl7 15:24 Jc Villegas MD is Attending Physician. elizabeth 15:26 Triage completed. jl7 15:26 Arm band placed on right wrist. jl7 16:16 Acetaminophen Sent. ab2 16:16 Basic Metabolic Panel Sent. ab2 16:17 Demetri Pradhan, LLOYD is Primary Nurse. jl7 16:17 Troponin High Sensitivity Sent. ab2 16:30 Inserted saline lock: 22 gauge in left ,using aseptic technique. breast. ab2 16:34 CT Head Brain wo Cont In Process Unspecified. EDMS 16:38 No provider procedures requiring assistance completed. Inserted saline lock: 18 gauge ab2 in right EJ, using aseptic technique. Blood collected. 16:39 Patient has correct armband on for positive identification. Bed in low position. Call ab2 light in reach. Side rails up X2. 17:36 Chest Single View XRAY In Process Unspecified. EDMS 17:53 I walked into the patients room and told the patient she was up for discharge and asked ab2 her if she had a ride. The patient sat straight up and said, "Fuck you, you fucking bitch, get out of my room. Fuck this [facility] they don't do shit!" I said, "Please do not speak to me like that." The patient then continued on saying, "Ill speak to you however the fuck I want to, you cunt." I then turned around and exited the room to grab some gauze to remove her IV and LLOYD Mosquera came in the room and the patient was screaming at her as well. Pt then ripped her IV in the EJ out and walked out of her room towards the exit. Administered Medications: 16:17 Drug: NS 0.9% 1000 ml {Note: EJ.} Route: IV; Rate: 1 bolus; Site: Other; ab2 17:37 Drug: Ketorolac 30 mg {Note: EJ.} Route: IVP; Site: Other; ab2 17:38 Drug: Rocephin (cefTRIAXone) 1 grams {Note: EJ.} Route: IV; Rate: per protocol; Site: ab2 Other; Outcome: 17:44 Discharge ordered by . elizabeth 18:03 Discharged to home ambulatory. ab2 18:03 Condition: good 18:03 Discharge instructions given to Patient refused 18:04 Patient left the ED. ab2 Signatures: Dispatcher [employer] EDMS Jc Villegas MD MD cha Leal, Jahala, RN RN jl7 Leonardo Mcarthur ab2 Corrections: (The following items were deleted from the chart) 16:24 16:17 Troponin High Sensitivity drawn and sent. ab2 EDMS 16:24 16:17 PROBNP+C.LAB.BRZ drawn and sent. ab2 EDMS
--- NOTE | 2021-08-15 17:45 | EDPHYS ---
Physician Documentation [facility] Name: Jeanette Villalta Age: 56 yrs Sex: Female : 1965 Arrival Date: 08/15/2021 Time: 15:23 Bed 28 Private MD: ED Physician Jc Villegas HPI: 08/15 16:16 This 56 yrs old Female presents to ER via EMS with complaints of General elizabeth Weakness. 16:16 The patient complains of pain to the forehead, left frontal area and right frontal elizabeth area. The patient complains of pain to the . The patient describes the headache as aching, constant. Onset: The symptoms/episode began/occurred 3 day(s) ago. weak, using drugs. Associated signs and symptoms: Pertinent positives: sinus congestion, weakness. Severity of symptoms: At its worst the pain was mild, in the emergency department the pain is unchanged. Headache History: The patient has had previous headaches and this one is similar to previous episodes. Severity of symptoms: At their worst the symptoms were mild moderate in the emergency department the symptoms are unchanged. The symptoms are alleviated by nothing. the symptoms are aggravated by nothing. Historical: - Allergies: 15:26 No Known Allergies; jl7 - Home Meds: 15:26 None [Active]; jl7 - PMHx: 15:26 Hepatitis; Chronic obstructive lung disease; jl7 - Immunization history:: Client reports having NOT received the Covid vaccine. - Social history:: Smoking status: Patient reports the use of cigarette tobacco products, smokes one pack cigarettes per day. Patient uses street drugs, Methamphetamine (Meth). - Family history:: not pertinent. ROS: 16:16 Constitutional: Negative for fever, chills, and weight loss, Eyes: Negative for injury, elizaebth pain, redness, and discharge, ENT: Negative for injury, pain, and discharge, Neck: Negative for injury, pain, and swelling, Cardiovascular: Negative for chest pain, palpitations, and edema, Respiratory: Negative for shortness of breath, cough, wheezing, and pleuritic chest pain, Abdomen/GI: Negative for abdominal pain, nausea, vomiting, diarrhea, and constipation, Back: Negative for injury and pain, : Negative for injury, bleeding, discharge, and swelling, MS/Extremity: Negative for injury and deformity, Skin: Negative for injury, rash, and discoloration, Psych: Negative for depression, anxiety, suicide ideation, homicidal ideation, and hallucinations, Allergy/Immunology: Negative for hives, rash, and allergies, Endocrine: Negative for neck swelling, polydipsia, polyuria, polyphagia, and marked weight changes, Hematologic/Lymphatic: Negative for swollen nodes, abnormal bleeding, and unusual bruising. 16:16 Neuro: Positive for headache, weakness. Exam: 16:16 Constitutional: This is a well developed, well nourished patient who is awake, alert, elizabeth and in no acute distress. Head/Face: Normocephalic, atraumatic. Eyes: Pupils equal round and reactive to light, extra-ocular motions intact. Lids and lashes normal. Conjunctiva and sclera are non-icteric and not injected. Cornea within normal limits. Periorbital areas with no swelling, redness, or edema. ENT: Nares patent. No nasal discharge, no septal abnormalities noted. Tympanic membranes are normal and external auditory canals are clear. Oropharynx with no redness, swelling, or masses, exudates, or evidence of obstruction, uvula midline. Mucous membranes moist. Neck: Trachea midline, no thyromegaly or masses palpated, and no cervical lymphadenopathy. Supple, full range of motion without nuchal rigidity, or vertebral point tenderness. No Meningismus. Chest/axilla: Normal chest wall appearance and motion. Nontender with no deformity. No lesions are appreciated. Cardiovascular: Regular rate and rhythm with a normal S1 and S2. No gallops, murmurs, or rubs. Normal PMI, no JVD. No pulse deficits. Respiratory: Lungs have equal breath sounds bilaterally, clear to auscultation and percussion. No rales, rhonchi or wheezes noted. No increased work of breathing, no retractions or nasal flaring. Abdomen/GI: Soft, non-tender, with normal bowel sounds. No distension or tympany. No guarding or rebound. No evidence of tenderness throughout. Back: No spinal tenderness. No costovertebral tenderness. Full range of motion. Female : Normal external genitalia. Skin: Warm, dry with normal turgor. Normal color with no rashes, no lesions, and no evidence of cellulitis. MS/ Extremity: Pulses equal, no cyanosis. Neurovascular intact. Full, normal range of motion. Neuro: Awake and alert, GCS 15, oriented to person, place, time, and situation. Cranial nerves II-XII grossly intact. Motor strength 5/5 in all extremities. Sensory grossly intact. Cerebellar exam normal. Normal gait. Psych: Awake, alert, with orientation to person, place and time. Behavior, mood, and affect are within normal limits. 16:16 Neck: ROM/movement: is normal, no acute changes, limited range of motion, is not appreciated, that is mild, Meningeal signs: are not present, Kernig's sign is negative, Brudzinski's sign is negative, nuchal rigidity, is not appreciated. 17:28 ECG was reviewed by the Attending Physician. [facility] Vital Signs: 15:24 BP 136 / 86; Pulse 73; Resp 15; Temp 98.1; Pulse Ox 100% on R/A; Weight 58.97 kg (R); jl7 Height 5 ft. 1 in. (154.94 cm) (R); 16:43 BP 116 / 72; Pulse 63; Resp 16; Pulse Ox 100% on R/A; ab2 17:09 BP 117 / 69; Pulse 62; Resp 15; Pulse Ox 100% ; jl7 15:24 Body Mass Index 24.56 (58.97 kg, 154.94 cm) jl7 Wykoff Coma Score: 16:19 Eye Response: spontaneous(4). Verbal Response: oriented(5). Motor Response: obeys [facility] commands(6). Total: 15. Procedures: 16:49 Peripheral line: by aseptic technique a peripheral line was placed in the right [facility] external jugular vein. MDM: 15:24 Patient medically screened. [facility] 16:19 Differential diagnosis: hypoglycemia, hyponatremia, subdural hematoma, tension elizabeth headache, traumatic injuries, trigeminal neuralgia, vasomotor headache. Data reviewed: vital signs, nurses notes, lab test result(s), EKG, radiologic studies, CT scan, plain films. 08/15 15:31 Order name: Acetaminophen [facility] 08/15 15:31 Order name: Basic Metabolic Panel [facility] 08/15 15:31 Order name: CBC with Diff; Complete Time: 16:49 [facility] 08/15 15:31 Order name: ETOH Level; Complete Time: 16:49 [facility] 08/15 15:31 Order name: Hepatic Function; Complete Time: 16:49 [facility] 08/15 15:31 Order name: PT-INR; Complete Time: 16:49 [facility] 08/15 15:31 Order name: Ptt, Activated; Complete Time: 16:49 [facility] 08/15 15:31 Order name: Salicylate; Complete Time: 16:49 [facility] 08/15 15:31 Order name: Urine Drug Screen 08/15 15:31 Order name: Acetaminophen Level; Complete Time: 16:49 EDMS 08/15 15:31 Order name: Basic Metabolic Panel; Complete Time: 16:49 [facility] 08/15 16:13 Order name: Troponin High Sensitivity [facility] 08/15 15:31 Order name: EKG; Complete Time: 15:32 [facility] 08/15 15:31 Order name: EKG - Nurse/Tech; Complete Time: 16:58 [facility] 08/15 15:31 Order name: IV Saline Lock; Complete Time: 16:58 [facility] 08/15 15:31 Order name: Labs collected and sent; Complete Time: 16:58 [facility] 08/15 15:31 Order name: Suicide Screening ([place]); Complete Time: 16:58 [facility] 08/15 15:31 Order name: Urine Dipstick-Ancillary (obtain specimen); Complete Time: 17:42 [facility] 08/15 16:13 Order name: Chest Single View XRAY elizabeth 08/15 16:13 Order name: CT Head Brain wo Cont; Complete Time: 17:20 [facility] 08/15 16:24 Order name: Troponin High Sensitivity; Complete Time: 16:49 [facility] 08/15 16:24 Order name: NT PRO-BNP; Complete Time: 16:49 [facility] 08/15 17:39 Order name: Urine Dipstick-Ancillary EDMS EC:28 Rate is 61 beats/min. Rhythm is regular. QRS Chamberlain is Normal. HI interval is normal. QRS elizabeth interval is normal. QT interval is normal. No Q waves. T waves are Normal. No ST changes noted. Clinical impression: Normal ECG and No evidence of ischemia. Interpreted by me. Reviewed by me. Administered Medications: 16:17 Drug: NS 0.9% 1000 ml {Note: EJ.} Route: IV; Rate: 1 bolus; Site: Other; ab2 17:37 Drug: Ketorolac 30 mg {Note: EJ.} Route: IVP; Site: Other; ab2 17:38 Drug: Rocephin (cefTRIAXone) 1 grams {Note: EJ.} Route: IV; Rate: per protocol; Site: 2 Other; Disposition Summary: 08/15/21 17:44 Discharge Ordered Location: Home elizabeth Problem: new elizabeth Symptoms: have improved elizabeth Condition: Stable elizabeth Diagnosis - Weakness elizabeth - Headache elizabeth - Other acute sinusitis - ethmoid elizabeth Followup: elizabeth - With: Private Physician - When: 2 - 3 days - Reason: Recheck today's complaints, Continuance of care, Re-evaluation by your physician Discharge Instructions: - Discharge Summary Sheet elizabeth - General Headache Without Cause elizabeth - Weakness elizabeth - Fatigue elizabeth - Weakness, [id number] elizabeth - Sinusitis, Adult elizabeth - Aspirin and Your Heart elizabeth - General Headache Without Cause, Odll-[id number] elizabeth - Sinus Headache, Dskk-by-Vhrh elizabeth Forms: - Medication Reconciliation Form [facility] - Thank You Letter elizabeth - Antibiotic Education elizabeth - Prescription Opioid Use [facility] Prescriptions: - Zofran 4 mg Oral Tablet - take 1 tablet by ORAL route every 12 hours As needed; 20 tablet; Refills: 0, [facility] Product Selection Permitted - Bactrim DS 800-160 mg Oral Tablet - take 1 tablet by ORAL route every 12 hours for 10 days; 20 tablet; Refills: 0, [facility] Product Selection Permitted - Motrin IB 200 mg Oral Tablet - take 2 tablet by ORAL route every 6 hours As needed as needed with food; 30 elizabeth tablet; Refills: 0, Product Selection Permitted Signatures: Dispatcher [employer] EDJc Salcedo MD MD cha Leal, Jahala, RN RN jl7 Leonardo Mcarthur ab2 Corrections: (The following items were deleted from the chart) 16:24 16:14 Troponin High Sensitivity ordered. EDMS EDMS 16:24 16:14 PROBNP+C.LAB.BRZ ordered. EDMS EDMS
--- NOTE | 2021-08-15 17:46 | RAD REPORT ---
EXAM DESCRIPTION: [place] Single View08/15/2021 5:37 pm CLINICAL HISTORY: cough COMPARISON: 2017 FINDINGS: The lungs appear clear of acute infiltrate. The heart is normal size IMPRESSION: No acute abnormalities displayed
[2021-08-15 18:10] LABS: Barbiturates POSITIVE (NEGATIVE); Benzodiazepines NEGATIVE (NEGATIVE); Cocaine NEGATIVE (NEGATIVE); METHAMPHETAM POSITIVE (NEGATIVE); Methadone NEGATIVE (NEGATIVE); Opiates NEGATIVE (NEGATIVE); Phencyclidine NEGATIVE (NEGATIVE); THC Cannibis NEGATIVE (NEGATIVE)
[2021-08-15 18:43] VITALS: O2SAT 100
[2021-08-15 18:45] VITALS: BP 117/69
== END 2021-08-15 18:04 | disposition home or self-care (01) ==
LOC: ER 15:25
PROC: 05HP33Z Insertion of Infusion Device into Right External Jugular Vein, Percutaneous Approach (ICD-10-PCS; principal; 2021-08-15)
DX: R53.1 Weakness (principal); J01.20 Acute ethmoidal sinusitis, unspecified; F17.210 Nicotine dependence, cigarettes, uncomplicated
CPT/HCPCS: 36415; 70450; 71045; 80048; 80076; 80307; 80320; 80329; 81003; 83880; 84484; 85025; 85610; 85730; 93005; 96374; 96375; 99284; J7030

== ENCOUNTER 2021-12-31 18:17 | Emergency (ER) | payer OTHER ==
--- OUTSIDE RECORDS SUMMARY | 2021-12-31 18:22 | XMS REPORT | Continuity of Care Document ---
:1965 Author Organization [facility] t Address [address] [place] [address] Care Team Providers Name Role Phone PCP, DOES NOT HAVE A Primary Care Physician Unavailable ANDREEA Attending Clinician Unavailable RAMÓN Attending Clinician Unavailable RUBEN Attending Clinician Unavailable Kassy TORRES Attending Clinician Unavailable Jessica MERCEDES S Attending Clinician Andres MERCEDES Attending Clinician Doctor Unassigned, Name Attending Clinician Unavailable RUBEN Admitting Clinician Unavailable Kassy TORRES Admitting Clinician Unavailable Payers Payer Name Policy Type Policy Number Effective Date Expiration Date S ource Problems Condition Condition Condition Status Onset Resolution Last Treating Co mments Source Name Details Category Date Date Treatment Clinician Date No known No known Disease Unive rs active active ity of problems problems [facility] Allergies, Adverse Reactions, Alerts Allergy Allergy Status Severity Reaction(s) Onset Inactive Treating Comm ents Source Name Type Date Date Clinician NO KNOWN Drug Active Univers ALLERGIE Class ity of S [facility] Social History Social Habit Start Date Stop Date Quantity Comments Source History [facility] o f Alcohol Frequency [place] [facility] History [facility] o f Alcohol Std Drinks [facility] History [facility] o f Alcohol Binge [place] [facility] [place] History of tobacco Cigarette Smoker University of use [facility] Exposure to 2021-11-30 2021-12-10 Not sure University SARS-CoV-2 (event) 00:00:00 19:22:00 [facility] Alcohol intake 2021-12-10 2021-12-10 Current University of 00:00:00 00:00:00 non-drinker of [place] Medi melly alcohol Branch (finding) Cigarettes smoked 2012-10-07 2012-10-07 Univers ity of current (pack per 00:00:00 00:00:00 ) - Reported Branch Cigarette 2012-10-07 2012-10-07 University of pack-years 00:00:00 00:00:00 [facility] Tobacco use and 2012-10-07 2012-10-07 Never used Universit y of exposure 00:00:00 00:00:00 [facility] Alcohol Comment 2012-10-07 2012-10-07 H/O alcohol Universi ty of 00:00:00 00:00:00 abuse [facility] Sex [birth year] Universit y of 00:00:00 00:00:00 [facility] Smoking Status Start Date Stop Date Source Current every day smoker 2012-10-07 00:00:00 Uni versity of [facility] Medications Ordered Filled Start Stop Current Ordering Indication Dosage Frequency Signature Comments Components Source Medication Medication Date Date Medication? Clinician (SIG) Name Name HYDROcodone 2021- No 1{tbl} 1 tablet, Univers -acetaminop 516 -16 Oral, ity of hen (NORCO 01:45: 01:40 ONCE, 1 Les as 5) 5-325 mg 00 :00 dose, On Medi melly tablet 1 Sun Branch tablet 12/10/21 at 204, JACKI acetaminoph 2021- Yes [id number] 1{tbl} Take 1 U nivers en-codeine 12-10- tablet by ity of 300-30 mg 00:00: 04:59 mouth [place] tablet 00 :00 every 4 Medical (four) Branch hours as needed for Pain (scale 4-6) for up to 7 days. Indication s: acute pain ondansetron 2021- No 8mg 8 mg, Univ ers (ZOFRAN-ODT 08-17 Oral, ity of ) 09:30: 08:24 ONCE, 1 [place] disintegrat 00 :00 dose, On Medi melly ing tablet Lou Branch 8 mg 08/17/21 at 0330, Routine FENTanyl PF 2021- No 50ug 50 mcg, Un jair (SUBLIMAZE 08-17 Intramuscu it y of (PF)) 09:30: 08:23 lar, ONCE, [place] injection 00 :00 1 dose, On Medi melly 50 mcg Lou Branch 08/17/21 at 0330, Routine traMADoL Yes [id number] 50mg Take 1 Univers (ULTRAM) 50 1-20 tablet by ity of mg tablet 00:00: mouth [place] 00 every 6 Medical (six) Branch hours as needed for Pain (scale 7-10). Indication s: acute pain traMADoL Yes [id number] 50mg Take 1 Univers (ULTRAM) 50 1-20 tablet by ity of mg tablet 00:00: mouth [place] 00 every 6 Medical (six) Branch hours as needed for Pain (scale 7-10). Indication s: acute pain ondansetron 2021- No 4mg 4 mg, Univ ers (ZOFRAN-ODT 08-14 Oral, ity of ) 13:15: 12:08 ONCE, 1 [place] disintegrat 00 :00 dose, On Medi melly ing tablet Mon Branch 4 mg 08/14/21 at 0715, Routine FENTanyl PF 2021- No 50ug 50 mcg, Un jair (SUBLIMAZE 08-14 Intramuscu it y of (PF)) 13:15: 12:06 lar, ONCE, [place] injection 00 :00 1 dose, On Medi melly 50 mcg Mon Branch 08/14/21 at 0715, Routine butalbital- Yes [id number] 1{tbl} Take 1 Univers acetaminoph 1-17 tablet by ity of en-caff 00:00: mouth [place] 50-325-40 00 every 6 Medical mg tablet (six) Branch hours as needed (Headache) . butalbital- Yes [id number] 1{tbl} Take 1 Univers acetaminoph 1-17 tablet by ity of en-caff 00:00: mouth [place] 50-325-40 00 every 6 Medical mg tablet (six) Branch hours as needed (Headache) . butalbital- Yes [id number] 1{tbl} Take 1 Univers acetaminoph 1-17 tablet by ity of en-caff 00:00: mouth [place] 50-325-40 00 every 6 Medical mg tablet (six) Branch hours as needed (Headache) . ondansetron No 4mg 4 mg, Univ ers (ZOFRAN 10-09 Intramuscu ity o f (PF)) 02:30: 01:29 lar, ONCE, [place] injection 4 00 :00 1 dose, Medic al mg Sat Branch 10/08/20 at 2030, JACKI NaCl 0.9% 2020- No 1000mL at 999 Uni vers (NS) bolus 10-08 mL/hr, ity of infusion 23:00: 01:07 1,000 mL, Les as 1,000 mL 00 :00 IV Medical Infusion, Branch ONCE, 1 dose, 10/08/20 at 1700, STAT ondansetron 2020- No 4mg 4 mg, Slow Univers (ZOFRAN 10-08 IV Push, ity of (PF)) 23:00: 23:31 ONCE, 1 [place] injection 4 00 :00 dose, Sat Med ical mg 10/08/20 at Branch 1700, JACKI ondansetron Yes [id number] 4mg Take 1 Univers 4 mg 3-13 tablet by ity of disintegrat 00:00: mouth [place] ing tablet 00 every 4 Medica l (four) Branch hours as needed for Nausea and Vomiting (N/V). dicyclomine Yes [id number] 10mg Take 1 Univers (BENTYL) 10 3-13 capsule by it y of mg capsule 00:00: [place] (four) Medical times Branch daily. ondansetron Yes [id number] 4mg Take 1 Univers 4 mg 3-13 tablet by ity of disintegrat 00:00: mouth [place] ing tablet 00 every 4 Medica l (four) Branch hours as needed for Nausea and Vomiting (N/V). dicyclomine 2020-0 Yes [id number] 10mg Take 1 Univers (BENTYL) 10 3-13 capsule by it y of mg capsule 00:00: mouth [place] (four) Medical times Branch daily. ondansetron 2020-0 Yes [id number] 4mg Take 1 Univers 4 mg 3-13 tablet by ity of disintegrat 00:00: mouth [place] ing tablet 00 every 4 Medica l (four) Branch hours as needed for Nausea and Vomiting (N/V). dicyclomine Yes [id number] 10mg Take 1 Univers (BENTYL) 10 3-13 capsule by it y of mg capsule 00:00: mouth [place] (four) Medical times Branch daily. ondansetron Yes [id number] 4mg Take 1 Univers 4 mg 3-13 tablet by ity of disintegrat 00:00: mouth [place] ing tablet 00 every 4 Medica l (four) Branch hours as needed for Nausea and Vomiting (N/V). dicyclomine Yes [id number] 10mg Take 1 Univers (BENTYL) 10 3-13 capsule by it y of mg capsule 00:00: mouth [place] (four) Medical times Branch daily. iohexol 2019-07 2020- No 120mL 120 mL, Unive rs (OMNIPAQUE 0-23 10-23 Intravenou it y of 350 02:45: 02:45 [...] 4-6) for up to 30 doses. acetaminoph 2021- No 1{tbl} Take 1 U nivers en-codeine 6-09 05-15 tablet by ity of 300-30 mg 00:00: 00:00 mouth [place] tablet 00 :00 every 6 Medical (six) Branch hours as needed for Pain (scale 4-6) for up to 30 doses. VITAMIN B Yes 1{tbl} Take 1 Tab Univers COMPLEX 3-12 by mouth ity of ORAL 21:36: daily. [address] DOCOSAHEXAN Yes 1{tbl} Take 1 Tab Univers OIC 3-12 by mouth ity of ACID/EPA 21:36: daily. [place] (FISH OIL 38 Medical ORAL) [place] VITAMIN B Yes 1{tbl} Take 1 Tab Univers COMPLEX 3-12 by mouth ity of ORAL 21:36: daily. [address] DOCOSAHEXAN Yes 1{tbl} Take 1 Tab Univers OIC 3-12 by mouth ity of ACID/EPA 21:36: daily. [place] (FISH OIL 38 Medical ORAL) [place] VITAMIN B Yes 1{tbl} Take 1 Tab Univers COMPLEX 3-12 by mouth ity of ORAL 21:36: daily. [address] DOCOSAHEXAN Yes 1{tbl} Take 1 Tab Univers OIC 3-12 by mouth ity of ACID/EPA 21:36: daily. [place] (FISH OIL 38 Medical ORAL) [place] VITAMIN B Yes 1{tbl} Take 1 Tab Univers COMPLEX 3-12 by mouth ity of ORAL 21:36: daily. [place] 38 Medical Branch DOCOSAHEXAN Yes 1{tbl} Take 1 Tab Univers OIC 3-12 by mouth ity of ACID/EPA 21:36: daily. [place] (FISH OIL 38 Medical ORAL) Branch RUTIN/HESP/ [...] by mouth ity of ORAL) 21:34: daily. [address] Branch Ibuprofen Yes 4{tbl} Take 4 [...] by mouth ity of ORAL) 21:34: daily. [address] Branch ASPIRIN Yes 1{tbl} Take 1 Tab Un jair (ASPIR-81 3-12 by mouth ity of ORAL) 21:34: daily. [address] Branch Ibuprofen Yes 4{tbl} Take 4 Univ ers (ADVIL 3-12 Tabs by ity of LIQUI-GEL) 21:34: mouth [place] 200 mg Cap 53 daily. [facility] Branch Acetaminoph Yes 2{tbl} Take 2 Un jair en 3-12 Tabs by ity of (NON-ASPIRI 21:34: mouth [place] EXTRA 53 needed. Medical STRENGTH) Branch 500 mg Cap OMEPRAZOLE Yes 1{tbl} Take 1 Tab Univers (PRILOSEC 3-12 by mouth ity of ORAL) 21:34: daily. [address] Branch ASPIRIN Yes 1{tbl} Take 1 Tab Un jair (ASPIR-81 3-12 by mouth ity of ORAL) 21:34: daily. [address] Ibuprofen Yes 4{tbl} Take 4 Univ ers (ADVIL 3-12 Tabs by ity of LIQUI-GEL) 21:34: mouth [place] 200 mg Cap 53 daily. [facility] Acetaminoph Yes 2{tbl} Take 2 Un jair en 3-12 Tabs by ity of (NON-ASPIRI 21:34: mouth [place] EXTRA 53 needed. Medical STRENGTH) Branch 500 mg Cap OMEPRAZOLE Yes 1{tbl} Take 1 Tab Univers (PRILOSEC 3-12 by mouth ity of ORAL) 21:34: daily. [address] ASPIRIN Yes 1{tbl} Take 1 Tab Un jair (ASPIR-81 3-12 by mouth ity of ORAL) 21:34: daily. [address] Ibuprofen Yes 4{tbl} Take 4 Univ ers (ADVIL 3-12 Tabs by ity of LIQUI-GEL) 21:34: mouth [place] 200 mg Cap 53 daily. [facility] Branch Acetaminoph Yes 2{tbl} Take 2 Un jair en 3-12 Tabs by ity of (NON-ASPIRI 21:34: mouth [place] EXTRA 53 needed. Medical STRENGTH) Branch 500 mg Cap OMEPRAZOLE Yes 1{tbl} Take 1 Tab Univers (PRILOSEC 3-12 by mouth ity of ORAL) 21:34: daily. [address] VITAMIN B Yes 1{tbl} Take 1 Tab Univers COMPLEX 3-12 by mouth ity of ORAL 16:36: daily. [place] [address] Medical Branch DOCOSAHEXAN Yes 1{tbl} Take 1 Tab Univers OIC 3-12 by mouth ity of ACID/EPA 16:36: daily. [place] (FISH OIL 38 Medical ORAL) Branch VITAMIN B Yes 1{tbl} Take 1 Tab Univers COMPLEX 3-12 by mouth ity of ORAL 16:36: daily. [address] Branch DOCOSAHEXAN Yes 1{tbl} Take 1 Tab Univers OIC 3-12 by mouth ity of ACID/EPA 16:36: daily. [place] (FISH OIL 38 Medical ORAL) Branch VITAMIN B Yes 1{tbl} Take 1 Tab Univers COMPLEX 3-12 by mouth ity of ORAL 16:36: daily. [place] [address] Medical Branch DOCOSAHEXAN Yes 1{tbl} Take 1 Tab Univers OIC 3-12 by mouth ity of ACID/EPA 16:36: daily. [place] (FISH OIL 38 Medical ORAL) Branch RUTIN/HESP/ [...] by mouth ity of ORAL) 16:34: daily. [place] [address] Medical Branch Ibuprofen Yes 4{tbl} Take 4 [...] by mouth ity of ORAL) 16:34: daily. [address] ASPIRIN Yes 1{tbl} Take 1 Tab Un jair (ASPIR-81 3-12 by mouth ity of ORAL) 16:34: daily. [address] Ibuprofen Yes 4{tbl} Take 4 Univ ers (ADVIL 3-12 Tabs by ity of LIQUI-GEL) 16:34: mouth [place] 200 mg Cap 53 daily. [facility] Branch Acetaminoph Yes 2{tbl} Take 2 Un jair en 3-12 Tabs by ity of (NON-ASPIRI 16:34: mouth [place] EXTRA 53 needed. Medical STRENGTH) [place] 500 mg Cap OMEPRAZOLE Yes 1{tbl} Take 1 Tab Univers (PRILOSEC 3-12 by mouth ity of ORAL) 16:34: daily. [address] ASPIRIN Yes 1{tbl} Take 1 Tab Un jair (ASPIR-81 3-12 by mouth ity of ORAL) 16:34: daily. [address] Ibuprofen Yes 4{tbl} Take 4 Univ ers (ADVIL 3-12 Tabs by ity of LIQUI-GEL) 16:34: mouth [place] 200 mg Cap 53 daily. [facility] Acetaminoph Yes 2{tbl} Take 2 Un jair en 3-12 Tabs by ity of (NON-ASPIRI 16:34: mouth [place] EXTRA 53 needed. Medical STRENGTH) Branch 500 mg Cap OMEPRAZOLE Yes 1{tbl} Take 1 Tab Univers (PRILOSEC 3-12 by mouth ity of ORAL) 16:34: daily. [address] Immunizations Ordered Filled Immunization Date Status Comments Sour e Immunization Name Name TD 2012-10-07 Completed University of 00:00:00 [facility] TDAP 2012-10-07 Completed University of 00:00:00 [facility] TDAP 2012-10-07 Completed University of 00:00:00 [facility] TDAP 2012-10-07 Completed University of 00:00:00 [facility] TDAP 2012-10-07 Completed University of 00:00:00 [place] [facility] TDAP 2012-10-07 Completed University of 00:00:00 [place] [facility] TDAP 2012-10-07 Completed University of 00:00:00 [facility] Vital Signs Vital Name Observation Time Observation Value Comments Source Systolic blood 2021-12-11 02:11:00 115 mm[Hg] Univer sity of pressure [place] [facility] Diastolic blood 2021-12-11 02:11:00 69 mm[Hg] Unive rsity of pressure [place] [facility] Heart rate 2021-12-11 02:11:00 79 /min Universi ty of [place] [facility] Respiratory rate 2021-12-11 02:11:00 20 /min Univ ersity of [place] [facility] Oxygen saturation in 2021-12-11 02:11:00 97 /min University of Arterial blood by [place] [employer] Pulse oximetry Branch Body temperature 2021-12-11 00:24:00 37 [facility] ersity of [place] [facility] Body weight 2021-12-11 00:24:00 58.968 kg Universi ty of [place] [facility] BMI 2021-12-11 00:24:00 24.56 kg/m2 Universi ty of [place] [facility] Systolic blood 2021-08-17 09:00:00 121 mm[Hg] Univer sity of pressure [place] [facility] Diastolic blood 2021-08-17 09:00:00 80 mm[Hg] Unive rsity of pressure [place] [facility] Heart rate 2021-08-17 09:00:00 80 /min Universi ty of [place] [facility] Respiratory rate 2021-08-17 09:00:00 18 /min Univ ersity of [place] [facility] Oxygen saturation in 2021-08-17 09:00:00 98 /min University of Arterial blood by [place] [employer] Pulse oximetry Branch Body temperature 2021-08-17 03:08:00 37.17 [facility] ersity of [place] [facility] Body height 2021-08-17 03:08:00 154.9 cm Universi ty of [place] [facility] Body weight 2021-08-17 03:08:00 54.432 kg Universi ty of [place] [facility] BMI 2021-08-17 03:08:00 22.67 kg/m2 Universi ty of [place] [facility] Systolic blood 2021-08-14 11:46:00 120 mm[Hg] Univer sity of pressure [place] [facility] Diastolic blood 2021-08-14 11:46:00 72 mm[Hg] Unive rsity of pressure [place] [facility] Heart rate 2021-08-14 11:46:00 84 /min Universi ty of [place] [facility] Body temperature 2021-08-14 11:46:00 36.67 Dayanna Univ ersity of [place] [facility] Respiratory rate 2021-08-14 11:46:00 18 /min Univ ersity of [place] [facility] Body height 2021-08-14 11:46:00 154.9 cm Universi ty of [place] [facility] Body weight 2021-08-14 11:46:00 59.194 kg Universi ty of [place] [facility] BMI 2021-08-14 11:46:00 24.66 kg/m2 Universi ty of [place] [facility] Oxygen saturation in 2021-08-14 11:46:00 100 /min University of Arterial blood by [facility] Pulse oximetry Branch Systolic blood 2020-10-09 01:31:00 121 mm[Hg] Univer sity of pressure [place] [facility] Diastolic blood 2020-10-09 01:31:00 74 mm[Hg] Unive rsity of pressure [place] [facility] Heart rate 2020-10-09 01:31:00 85 /min Universi ty of [place] [facility] Respiratory rate 2020-10-09 01:31:00 17 /min Univ ersity of [place] [facility] Oxygen saturation in 2020-10-09 01:31:00 99 /min University of Arterial blood by [facility] Pulse oximetry Branch Body temperature 2020-10-08 21:30:00 36.06 Dayanna Univ ersity of [place] [facility] Body weight 2020-10-08 21:30:00 58.968 kg Universi ty of [place] [facility] BMI 2020-10-08 21:30:00 24.56 kg/m2 Universi ty of [place] [facility] Systolic blood 2020-05-20 03:00:00 127 mm[Hg] Univer sity of pressure [place] [facility] Diastolic blood 2020-05-20 03:00:00 77 mm[Hg] Unive rsity of pressure [place] [facility] Heart rate 2020-05-20 03:00:00 63 /min Universi ty of [place] [facility] Respiratory rate 2020-05-20 03:00:00 22 /min [facility] Oxygen saturation in 2020-05-20 03:00:00 98 /min [facility] Arterial blood by [facility] Pulse oximetry Branch Body temperature 2020-05-20 00:10:00 37.5 Dayanna [facility] Body weight 2020-05-20 00:10:00 53.071 kg [facility] BMI 2020-05-20 00:10:00 22.11 kg/m2 [facility] Procedures Procedure Date / Time Performing Clinician Source Performed XR RIBS 3 VW LEFT 2021-12-11 00:46:00 Joselito Wright [facility] CONSENT/REFUSAL FOR 2021-12-11 00:20:52 [facility] ASSIGNMENT OF BENEFITS 2021-08-17 03:56:50 Doctor Unassigned, No [facility] NOTICE OF PRIVACY 2021-08-17 02:36:36 Doctor Unassigned, No [facility] PRACTICES [facility] CONSENT/REFUSAL FOR 2021-08-17 02:36:17 [facility]igned, [facility] Medical [place] CT HEAD WO CONTRAST 2021-08-14 12:17:47 Blaze Torres [facility] CONSENT/REFUSAL FOR 2021-08-14 11:37:36 [facility]igned, [facility] Medical [place] CT ABDOMEN PELVIS WO 2020-10-09 00:25:25 Tim Campos [facility] CONTRAST [facility] URINALYSIS 2020-10-09 00:00:00 Andres Tim [facility] ADC / LCC - DRUG SCREEN 2020-10-09 00:00:00 Tim Campos [facility] TRIAGE [facility] LIPASE 2020-10-08 23:09:00 Tim Campos [facility] HEPATIC FUNCTION PANEL 2020-10-08 23:09:00 Tim Campos [facility] ([id number]) (ALB,T.PRO,BILI Medical [place] T,BU/BC,ALT,AST,ALK PHOS) BASIC METABOLIC PANEL 2020-10-08 23:09:00 Tim Campos [facility] (NA, K, CL, CO2, Medical Branch GLUCOSE, BUN, CREATININE, CA) ETHANOL 2020-10-08 23:09:00 Tim Campos [facility] CBC WITH DIFF 2020-10-08 23:09:00 Tim Campos [facility] PROTHROMBIN TIME / INR 2020-10-08 23:09:00 Tim Campos [facility] ACTIVATED PARTIAL 2020-10-08 23:09:00 Tim Campos [facility] THRMPLAS [facility] NOTICE OF PRIVACY 2020-10-08 21:27:27 Doctor Unassigned, No [facility] Name [facility] CONSENT/REFUSAL FOR 2020-10-08 21:23:03 Doctor Unassigned, No [facility] TREATMENT Name [facility] CT ABDOMEN PELVIS W 2020-05-20 02:31:58 Blaze Torres [facility] CONTRAST Medical Branch LIPASE 2020-05-20 00:34:00 Blaze Torres [facility] TROPONIN I 2020-05-20 00:34:00 Blaze Torres [facility] COMP. METABOLIC PANEL 2020-05-20 00:34:00 Blaze Torres [facility] ([id number]) [facility] CBC WITH DIFF 2020-05-20 00:34:00 Blaze Torres [facility] URINALYSIS 2020-05-20 00:34:00 Blaze Torres [facility] EKG-12 LEAD 2020-05-20 00:14:17 Blaze Torres [facility] NOTICE OF PRIVACY 2020-05-19 23:59:58 Doctor Unassigned, No Univ [facility] Name [facility] CONSENT/REFUSAL FOR 2020-05-19 23:59:43 Doctor Unassigned, No [facility] DI[facility]NOS[facility] AND TREATMENT Name [facility] Encounters Start End Encounter Admission Attending Care Care Encounter Source Date/Time Date/Time Type Type Clinicians Facility Department ID 2021-12-22 2021-12-23 Emergency [facility] [id number] [place] [address] 00:00:00 00:00:[address] 2021-12-20 2021-12-21 Emergency RAMÓN, [facility] Wanda [id number] [address] [place] 00:00:00 00:00:00 BIJALDEANDRE [address] 2021-12-10 2021-12-10 Emergency X RUBEN [facility] ERT [id number] Univers 19:26:00 21:24:00 JOSELITO ity of [facility] 2021-12-10 2021-12-10 Emergency Ruben, TRAUMA [id number] Univers 19:26:00 21:24:00 [facility] [id number] it y of 4.2.7.2.686 [facility] [id number] [facility] 014 Branch 2021-08-16 2021-08-17 Emergency X [facility] ERT [id number] Univers 21:15:00 04:01:00 BLAZE hornery [facility] 2021-08-16 2021-08-17 Emergency [facility] [id number] Univers 21:15:00 04:01:00 Blaze [place] [id number] ity of [place] [id number] [facility] [id number] [address] 2021-08-14 2021-08-14 Emergency X [facility] ERT [id number] Univers 05:49:00 07:00:00 BLAZE ity [facility] 2021-08-14 2021-08-14 Emergency [facility] [id number] Univers 05:49:00 07:00:00 Blaze [place] [id number] ity [facility] [id number] [facility] [id number] [place] [id number] Branch 2020-10-08 2020-10-08 Emergency [facility] [id number] Univers 15:33:00 19:53:00 Tim [place] [id number] i ty of [place] 4.2.7.2.686 [facility] [id number] [address] 2020-10-08 2020-10-08 Emergency X [facility] ERT [id number] Univers 15:24:00 15:24:00 ity [facility] 2020-10-08 2020-10-08 Orders Doctor JOSELITO [id number] Univers 00:00:00 00:00:00 Only Unassigned, MICHELL [id number] ity of [facility] 4.2.7.2.686 Les as [id number] [address] 2020-05-19 2020-05-19 Emergency [facility], [facility] [id number] Univers 19:12:00 23:04:00 Blaze [place] [id number] ity [facility] [id number] [facility] [id number] [address] 2020-05-19 2020-05-19 Emergency X [facility] ERT [id number] Univers 19:00:00 19:00:00 ity [facility] 2020-05-19 2020-05-19 Orders Doctor JOSELITO [id number] Univers 00:00:00 00:00:00 Only Unassigned, MICHELL [id number] ity of [place] [facility] [id number] Les as [id number] [address] Results Test Description Test Time Test Comments Results Result Comments Source [facility] - DRUG SCREEN TRIAGE 2020-10-09 01:07:36 Test Item Value Reference Range Interpretation Comme nts BENZO U (test code = 6857248155) Negative Negative LUTHER U (test code = 5805287936) Negative Negative AMPHET (test code = 9601160780) Presumptive Positive Negative A THC (test code = 4862980738) Negative Negative METHADONE (test code = 4694221421) Negative Negative Meth U (test code = 5468834459) Presumptive Positive Negative A OPIATES (test code = 1122320936) Negative Negative Cocaine Metabolite (test code = Negative Negative 0654816232) PROPOXY (test code = 9513718026) Negative Negative Tric U (test code = 8126351974) Negative Negative PCP (test code = 9703837278) Negative Negative OXYCOD (test code = 2489764710) Negative Negative ALMA (test code = ALMA) [...] testing). Lab Interpretation (test code = Abnormal 06312-6) [facility] 00[facility]59:40 Test Item Value Reference Range Interpretation Comments APPEARANCE (test code = Clear Clear 2291189977) COLOR (test code = Yellow Yellow 9602259791) PH (test code = 4.8-8.0 3852621927) SP GRAVITY (test code = 1.003-1.030 4872731383) GLU U QUAL (test code = Normal Normal 3501037555) BLOOD (test code = Negative Negative 1117207236) KETONES (test code = Negative Negative 8586144851) PROTEIN (test code = Negative Negative 2887-8) UROBILIN (test code = Normal Normal 3778153389) BILIRUBIN (test code = Negative Negative 1621946889) NITRITE (test code = Negative Negative 6050040706) LEUK JOHANNA (test code = Negative Negative 8363883776) RBC/HPF (test code = See_Comment H [Autom ated message] 8708029744) The system [employer] generated this result transmitted ref erence range: 0 - 3 HP F. The reference range was not used to int erpret this result as normal/abnormal . WBC/HPF (test code = See_Comment [Autom ated message] 8774666581) The system [employer] generated this result transmitted ref erence range: 0 - 5 HP F. The reference range was not used to int erpret this result as normal/abnormal . BACTERIA (test code = Few Negative A 0879516602) MUCOUS (test code = Slight Negative LPF A 6048656787) SQ EPITH (test code = HPF 0556505859) HYAL CAST (test code = See_Comment [Aut omated message] 8546487013) The system [employer] generated this result transmitted ref erence range: <=2 LPF. The reference range was not used to int erpret this result as normal/abnormal . Lab Interpretation (test Abnormal code = 28358-7) [facility] [id number] 00:46:29 No acute abdominal pelvic process. No hydronephrosis or radiopaque nephrolithiasis. Preliminary Report Dictated by Resident: Rohan Kohli ?MD Nadege., have reviewed this study and agree withthe above report.EXAM: CT ABDOMEN AND PELVIS WITHOUT CONTRAST HISTORY: Pt reports that she ate at [employer] and ate some "fried okra andthen started [...] reviewed this study and agree withthe above report.[facility] CenterETHANOL2021-[facility]-13 23:56:28 Test Item Value Reference Range Interpretation Comments ALCOHOL (test code = <10 mg/dL 4392314269) ALMA (test code = ALMA) <10 Levfewhy85-745 Toxic>100 Depression of SYSTEM SUPPORT SPECIALIST>400 Fatalities Reported [facility]eraPTT2021-[facility] 23:44:04 Test Item Value Reference Range Interpretation Comments APTT Patient (test See_Comment [Automat ed code = 3173-2) message] The system which generated this result transmitted reference range : 23 - 38 Seconds . The reference range was not used to interpr et this result as normal/abnormal . ALMA (test code = ALMA) The [facility] patient population mean normal value for aPTT is 30 seconds. Lab Interpretation Normal (test code = 79222-0) [facility] CenterProthrombin Time (PT) / [id number] 23:41:44 Test Item Value Reference Range Interpretation Comments PROTIME PATIENT (test See_Comment L [Auto mated message] code = 5964-2) The system wh ich generated this result transmitted ref erence range: 12.0 - 1 4.7 Seconds. The reference range was not used to int erpret this result as normal/abnormal . INR (test code = 6301-6) Nor mal INR <1.1; Warfarin Therap eutic range 2.0 to 3. 0 or 2.5 to 3.5, dep ending upon the indica tions. Lab Interpretation (test Abnormal code = 59560-8) [facility] (NA, K, CL, CO2, GLUCOSE, BUN, CREATININE, CA)2020-10-08 23:39:23 Test Item Value Reference Range Interpretation Comments NA (test code = 138 mmol/L 135-145 4957520871) K (test code = 4.3 mmol/L 3.5-5.0 7519393649) CL (test code = 105 mmol/L 98-108 8082093214) CO2 TOTAL (test code = 25 mmol/L 23-31 5517771122) AGAP (test code = 2-16 3130675092) BUN (test code = 20 mg/dL 7-23 4750361406) GLUCOSE (test code = 97 mg/dL 70-110 6856612529) CREATININE (test code 0.54 mg/dL 0.50-1.04 = 1438935875) CALCIUM (test code = 9.2 mg/dL 8.6-10.6 8744812654) eGFR Calculation mL/min/1.73m2 (Non-) (test code = 4948193003) eGFR Calculation mL/min/1.73m2 () (test code = 2977058663) ALMA (test code = ALMA) Association of [...] or urine or abnormalities in imaging tests). [facility] CenterHepatic Function Panel (ALB, T.PRO, BILI T, BU/BC, ALT, AST, ALK PHOS)2020-10-08 23:39:23 Test Item Value Reference Range Interpretation Comments TOTAL BILI (test code = 6426555279) 0.5 mg/dL 0.1-1.1 BILI UNCON (test code = 3709284582) 0.5 mg/dL 0.1-1.1 BILI CONJ (test code = 9988174655) 0.0 mg/dL 0.0-0.3 T PROTEIN (test code = 8960006002) 7.7 g/dL 6.3-8.2 ALBUMIN (test code = 5132457555) 4.4 g/dL 3.5-5.0 ALK PHOS (test code = 9083834796) 100 U/L 34-122 ALTv (test code = 1742-6) 23 U/L 5-35 AST(SGOT) (test code = 0577557779) 23 U/L 13-40 Lab Interpretation (test code = Normal 06236-1) [facility] CenterLipase [id number] 23:39:03 Test Item Value Reference Range Interpretation Comments LIPASE (test code = 0195809010) 68 U/L 0-220 Lab Interpretation (test code = Normal 62679-5) [facility] CenterCBC with [id number] 23:32:05 Test Item Value Reference Range Interpretation [...] RDW-SD (test code = 49.7 fL 39.0-49.9 00526-5) RDW-CV (test code = 15.0 % 12.0-15.5 788-0) PLT (test code = See_Comment L [Automated 777-3) message] The system which generated this result transmit arnol reference range : 166 - 358 10*3/ ?L. The reference range was not u sed to interpret th is result as normal/abnormal . MPV (test code = 13.3 fL 9.5-12.9 H 52571-5) NRBC/100 WBC (test See_Comment [Automat ed code = 1404952830) message] The system which generated this result transmit arnol reference range : 0.0 - 10.0 /100 WBCs. The reference range was not used to interpret this result as normal/abnormal . NRBC x10^3 (test code <0.01 See_Comment [Auto mated = 7588349136) message] The system which generated this result transmit arnol reference range : 10*3/?L. The reference range was not used to interpret this result as normal/abnormal . GRAN MAT (NEUT) % 80.2 % (test code = 770-8) IMM GRAN % (test code 0.40 % = 5347220109) LYMPH % (test code = 10.2 % 736-9) MONO % (test code = 7.9 % 5905-5) EOS % (test code = 1.1 % 713-8) BASO % (test code = 0.2 % 706-2) GRAN MAT x10^3(ANC) 11.23 10*3/uL 1.88-7.09 H (test code = 4588302519) IMM GRAN x10^3 (test 0.05 10*3/uL 0.00-0.06 code = 1957126753) LYMPH x10^3 (test code 1.43 10*3/uL 1.32-3.29 = 731-0) MONO x10^3 (test code 1.10 10*3/uL 0.33-0.92 H = 742-7) EOS x10^3 (test code = 0.16 10*3/uL 0.03-0.39 711-2) BASO x10^3 (test code 0.03 10*3/uL 0.01-0.07 = 704-7) Lab Interpretation Abnormal (test code = 98415-2) [facility] W [id number] 03:53:50 1. Vascular findings suggestive of congestive [...] Preliminary Report Dictated by Resident: Alex Villagomez ?MD. Jayson, have reviewed this study and agree with [...] this study and agree with the abovereport. [facility] with [id number] 02:03:00 Test Item Value Reference Range Interpretation Comments WBC (test code = See_Comment [Automated 3112-2) message] The sy stem which generated this result transmitted reference range : 4.30 - 11.10 10*3/?L. The reference range was not used to interpret this result as normal/abnormal . RBC (test code = See_Comment [Automated 160-8) message] The sy stem which generated this [...] RDW-SD (test code = 46.5 fL 39-49.9 35585-5) RDW-CV (test code = 14.2 % 12-15.5 788-0) PLT (test code = See_Comment [Automated 777-3) message] The sy stem which generated this result transmitted reference range : 166 - 358 10*3/ ?L. The reference r ramon was not used to interpret this result as normal/abnormal . MPV (test code = 12.3 fL 9.5-12.9 67902-7) NRBC/100 WBC (test See_Comment [Automat ed code = 7733086861) message] The system which generated this result transmitted reference range : 0.0 - 10.0 /100 WBCs. The refer ence range was not u sed to interpret th is result as normal/abnormal . NRBC x10^3 (test code <0.01 See_Comment [Auto mated = 3022854089) message] The s ystem which generated this result transmitted reference range : 10*3/?L. The reference range was not used to interpret this result as normal/abnormal . GRAN MAT (NEUT) % 31.8 % (test code = 770-8) IMM GRAN % (test code 0.20 % = 8290289128) LYMPH % (test code = 52.2 % 736-9) MONO % (test code = 10.4 % 5905-5) EOS % (test code = 4.9 % 713-8) BASO % (test code = 0.5 % 706-2) GRAN MAT x10^3(ANC) 1.75 10*3/uL 1.88-7.09 L (test code = 4680402153) IMM GRAN x10^3 (test <0.03 0-0.06 code = 9903678497) LYMPH x10^3 (test code 2.87 10*3/uL 1.32-3.29 = 731-0) MONO x10^3 (test code 0.57 10*3/uL 0.33-0.92 = 742-7) EOS x10^3 (test code = 0.27 10*3/uL 0.03-0.39 711-2) BASO x10^3 (test code 0.03 10*3/uL 0.01-0.07 = 704-7) Lab Interpretation Abnormal (test code = 72444-3) [facility] CenterTROPONIN [id number] 01:14:00 Test Item Value Reference Range Interpretation Comments TROPONIN I (test <0.012 See_Comment [Automated code = 7344098611) message] The system which generated this result [...] ? Lab Interpretation Normal (test code = 15235-8) [facility] CenterUrinalysis2020-10-23 01:04:00 Test Item Value Reference Range Interpretation Comments APPEARANCE (test code = Hazy Clear A 3162372192) COLOR (test code = Yellow Yellow 3946995776) PH (test code = 4.8-8.0 5317361085) SP GRAVITY (test code = 1.003-1.030 9319280405) GLU U QUAL (test code = Normal Normal 4313786745) BLOOD (test code = Negative Negative 1313403279) KETONES (test code = Negative Negative 3654068740) PROTEIN (test code = Negative Negative 2887-8) UROBILIN (test code = Normal Normal 8215980017) BILIRUBIN (test code = Negative Negative 8346953028) NITRITE (test code = Negative Negative 8086470464) LEUK JOHANNA (test code = Negative Negative 8085805956) RBC/HPF (test code = <1 See_Comment [Autom ated message] 8175850305) The system [employer] generated this result transmitted ref erence range: 0 - 3 HP F. The reference range was not used to int erpret this result as normal/abnormal . WBC/HPF (test code = See_Comment [Autom ated message] 1811717074) The system [employer] generated this result transmitted ref erence range: 0 - 5 HP F. The reference range was not used to int erpret this result as normal/abnormal . BACTERIA (test code = Negative Negative 9134767247) MUCOUS (test code = Slight Negative LPF A 1273248260) Lab Interpretation (test Abnormal code = 53534-7) [facility] CenterComplete Metabolic [id number] 01:02:00 Test Item Value Reference Range Interpretation Comments NA (test code = 136 mmol/L 135-145 3921939569) K (test code = 3.9 mmol/L 3.5-5 4154610579) CL (test code = 102 mmol/L 98-108 8073606308) CO2 TOTAL (test code = 28 mmol/L 23-31 6170993591) AGAP (test code = 2-16 9053141278) BUN (test code = 12 mg/dL 7-23 5353168399) GLUCOSE (test code = 90 mg/dL 70-110 7847302923) CREATININE (test code 0.59 mg/dL 0.5-1.04 = 5671070892) TOTAL BILI (test code 0.5 mg/dL 0.1-1.1 = 5733494241) CALCIUM (test code = 9.7 mg/dL 8.6-10.6 8007813173) T PROTEIN (test code = 7.2 g/dL 6.3-8.2 0823420088) ALBUMIN (test code = 3.9 g/dL 3.5-5 5693261876) ALK PHOS (test code = 69 U/L 34-122 3865669381) ALTv (test code = 25 U/L 5-35 1742-6) AST(SGOT) (test code = 29 U/L 13-40 5152388106) eGFR Calculation mL/min/1.73m2 (Non-) (test code = 2327865772) eGFR Calculation mL/min/1.73m2 () (test code = 2035300984) ALMA (test code = ALMA) Association of [...] or urine or abnormalities in imaging tests). [facility] CenterLipase, [id number] 01:02:00 Test Item Value Reference Range Interpretation Comments LIPASE (test code = 8695106361) 71 U/L 0-220 Lab Interpretation (test code = Normal 16530-5) [facility]
[2021-12-31] MEDS ORDERED: ASPIRIN 81 MG CHEWABLE TABLET ONE (20:35)
[2021-12-31 21:04] LABS: Absolute Lymphocytes (CBC) 3.3 K/uL (0.7-4.9); Hematocrit 42.1 % (36.0-45.0); Lymphocytes % 46.3 % (15.3-44.8); RBC Red Blood Cell Count 4.99 M/uL (3.86-4.86)
[2021-12-31 21:25] LABS: Potassium 3.9 mmol/L (3.5-5.1); Troponin High Sensitivity 5.9 pg/mL (<58.9)
--- NOTE | 2021-12-31 22:11 | ER ---
Nurse's Notes [facility] Name: Jeanette Villalta Age: 56 yrs Sex: Female : 1965 Arrival Date: 12/31/2021 Time: 18:19 Bed 16 Private MD: Diagnosis: Chest pain, unspecified Presentation: 12/31 18:34 Chief complaint: Patient states: L sided chest pain that radiates to L arm, denies N/V, ph SOB, pain started today. Coronavirus screen: Vaccine status: Patient reports being unvaccinated. Ebola Screen: No symptoms or risks identified at this time. Initial Sepsis Screen: Does the patient meet any 2 criteria? No. Patient's initial sepsis screen is negative. Does the patient have a suspected source of infection? No. Patient's initial sepsis screen is negative. Risk Assessment: Do you want to hurt yourself or someone else? Patient reports no desire to harm self or others. Onset of symptoms was December 31, 2021. 18:34 Method Of Arrival: Ambulatory ph 18:34 Acuity: CHANDLER 3 ph Triage Assessment: 18:38 General: Appears in no apparent distress. comfortable, Behavior is calm, cooperative, ph appropriate for age. Pain: Complains of pain in chest Pain radiates to left arm. Neuro: Level of Consciousness is awake, alert, obeys commands, Oriented to person, place, time, situation. Cardiovascular: Reports chest pain, Denies shortness of breath, Chest pain is located in left anterior chest wall radiates to left arm(s). Historical: - Allergies: 18:38 No Known Allergies; ph - PMHx: 18:38 Chronic obstructive lung disease; Hepatitis; ph - Immunization history:: Adult Immunizations unknown. - Social history:: Smoking status: Patient reports the use of cigarette tobacco products, smokes one pack cigarettes per day. Screenin:02 Abuse screen: Denies threats or abuse. Denies injuries from another. Nutritional jh6 screening: No deficits noted. Tuberculosis screening: No symptoms or risk factors identified. Fall Risk None identified. Assessment: 19:02 Pain: Pain began suddenly, 2 hours ago. Is intermittent, Alleviated by nothing. jh6 Aggravated by. Cardiovascular: Reports chest pain. 20:30 Reassessment: No changes from previously documented assessment. Patient and/or family ll3 updated on plan of care and expected duration. Pain level reassessed. Patient is alert, oriented x 3, equal unlabored respirations, skin warm/dry/pink. 22:00 Reassessment: No changes from previously documented assessment. Patient and/or family ll3 updated on plan of care and expected duration. Pain level reassessed. Patient is alert, oriented x 3, equal unlabored respirations, skin warm/dry/pink. Vital Signs: 18:34 BP 105 / 85; Pulse 82; Resp 18; Temp 97.9; Pulse Ox 97% on R/A; Weight 63.5 kg; Height ph 5 ft. 1 in. (154.94 cm); 19:18 BP 107 / 74; Pulse 75; Resp 22; Pulse Ox 100% ; ll3 20:30 BP 107 / 78; Pulse 84; Resp 21; Pulse Ox 100% on R/A; ll3 22:23 BP 110 / 78; Pulse 76; Resp 20; Pulse Ox 99% on R/A; ll3 18:34 Body Mass Index 26.45 (63.50 kg, 154.94 cm) ph ED Course: 18:19 Patient arrived in ED. am2 18:26 Rachael Finn PA is PHCP. en 18:38 Triage completed. ph 18:39 Arm band placed on Patient placed in an exam room. ph 18:44 Jc Villegas MD is Attending Physician. elizabeth 19:02 EKG done, by ED staff, reviewed by Rachael PLASENCIA. jh6 19:04 Bed in low position. Call light in reach. Side rails up X 1. economic analysis director on. Pulse jh6 ox on. NIBP on. 19:18 Oseas Lieberman, RN is Primary Nurse. ll3 19:51 PHCP role handed off by Rachael Finn PA [facility] 19:51 Manjit Saucedo PA is PHCP. jmm 20:45 Missed attempt(s): 20 gauge in right antecubital area. Bleeding controlled, band aid bb applied, catheter tip intact. 20:55 Initial lab(s) drawn, by ky, sent to lab. Inserted saline lock: 20 gauge in right bb antecubital area, using aseptic technique. Blood collected. 21:04 Patient maintains SpO2 saturation greater than 95% on room air. ll3 22:10 Baradhi, Darwin, MD is Referral Physician. [facility] 22:13 No provider procedures requiring assistance completed. ll3 22:23 IV discontinued, intact, bleeding controlled, No redness/swelling at site. Pressure ll3 dressing applied. Administered Medications: 20:34 Drug: Aspirin Chewable Tablet 324 mg Route: PO; ll3 21:02 Follow up: Response: No adverse reaction ll3 Medication: 22:13 VIS not applicable for this client. ll3 Outcome: 22:11 Discharge ordered by MD. [facility] 22:23 Discharged to home ambulatory, with significant other. ll3 22:23 Condition: stable 22:23 Discharge instructions given to patient, significant other, Instructed on discharge instructions, follow up and referral plans. Demonstrated understanding of instructions, follow-up care. 22:24 Patient left the ED. ll3 Signatures: Jc Villegas MD MD cha Mickail, Joel, PA PA jmm Ballard, Brenda, RN RN Yessica Moralez RN RN ph Moreno, Amanda Oseas Gómez RN RN 3 Lucie Martinez RN RN 6 Rachael Finn PA PA en
--- NOTE | 2021-12-31 22:11 | EDPHYS ---
Physician Documentation [facility] Name: Jeanette Villalta Age: 56 yrs Sex: Female : 1965 Arrival Date: 12/31/2021 Time: 18:19 Bed 16 Private MD: ED Physician Jc Villegas HPI: 12/31 19:40 This 56 yrs old Female presents to ER via Ambulatory with complaints of Chest Pain. 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 Pain radiates to mid back and left arm. No associated N/V/diaphoresis. No cough, SOB, JACOB, peripheral edema. Historical: - Allergies: 18:38 No Known Allergies; ph - PMHx: 18:38 Chronic obstructive lung disease; Hepatitis; ph - Immunization history:: Adult Immunizations unknown. - Social history:: Smoking status: Patient reports the use of cigarette tobacco products, smokes one pack cigarettes per day. ROS: 19:40 Constitutional: Negative for fever, chills, and weight loss. en 19:40 Cardiovascular: Positive for chest pain, Negative for edema, orthopnea, palpitations. 19:40 Respiratory: Negative for cough, shortness of breath, wheezing. 19:40 Abdomen/GI: Negative for nausea, vomiting, and diarrhea. Exam: 19:40 Constitutional: This is a well developed, well nourished patient who is awake, alert, en and in no acute distress. 19:40 Constitutional: The patient appears alert, awake. 19:40 Chest/axilla: Palpation: is normal, tenderness, is not appreciated. 19:40 Cardiovascular: Rate: normal, Rhythm: regular, Pulses: no pulse deficits are appreciated, Heart sounds: normal, S2. 19:40 ECG was reviewed by the Attending Physician. NSR at 72bpm, RAD, no ST changes, No STEMI 19:40 Respiratory: the patient does not display signs of respiratory distress, Respirations: normal, Breath sounds: are clear throughout, rhonchi, no stridor, no wheezing. 19:40 Abdomen/GI: Inspection: abdomen appears normal, Bowel sounds: normal, Palpation: abdomen is soft and non-tender. 19:40 Back: CVA tenderness, is absent. 19:40 Musculoskeletal/extremity: Extremities: grossly normal except: ROM: intact in all extremities, full active range of motion. 19:40 Skin: 19:40 Neuro: Orientation: is normal, appropriate for stated age, no acute changes, to person, place \\T\\ time. Motor: moves all fours, Sensation: appropriate no acute changes, Gait: is steady. Vital Signs: 18:34 BP 105 / 85; Pulse 82; Resp 18; Temp 97.9; Pulse Ox 97% on R/A; Weight 63.5 kg; Height ph 5 ft. 1 in. (154.94 cm); 19:18 BP 107 / 74; Pulse 75; Resp 22; Pulse Ox 100% ; ll3 20:30 BP 107 / 78; Pulse 84; Resp 21; Pulse Ox 100% on R/A; ll3 22:23 BP 110 / 78; Pulse 76; Resp 20; Pulse Ox 99% on R/A; ll3 18:34 Body Mass Index 26.45 (63.50 kg, 154.94 cm) ph MDM: 18:44 Patient medically screened. [facility] 19:40 Differential diagnosis: angina, ACS, costochondritis. Data reviewed: vital signs, en nurses notes, EKG, and as a result, I will Will check labs and imaging. Pt with HEART score of 2 pending Trop. 22:10 Refusal of service: The patient/guardian displays adequate decision making capability [facility] and despite a detailed discussion of alternatives, benefits, risks, and consequences refuses: Admission to the hospital for further work-up and treatment. 12/31 19:39 Order name: Basic Metabolic Panel; Complete Time: 21:31 12/31 19:39 Order name: CBC with Diff; Complete Time: 21:31 12/31 19:39 Order name: Troponin HS; Complete Time: 21:31 12/31 19:39 Order name: EKG; Complete Time: 19:40 12/31 19:39 Order name: Cardiac monitoring; Complete Time: 20:01 12/31 19:39 Order name: EKG - Nurse/Tech; Complete Time: 19:47 12/31 19:39 Order name: IV Saline Lock; Complete Time: 21:02 12/31 19:39 Order name: Labs collected and sent; Complete Time: 21:02 12/31 19:39 Order name: O2 Per Protocol; Complete Time: 20:01 en 12/31 19:39 Order name: O2 Sat Monitoring; Complete Time: 20:01 en Administered Medications: 20:34 Drug: Aspirin Chewable Tablet 324 mg Route: PO; ll3 21:02 Follow up: Response: No adverse reaction ll3 Disposition Summary: 12/31/21 22:11 Discharge Ordered Location: Home jm Condition: Stable jmm Diagnosis - Chest pain, unspecified jmm Followup: jmm - With: Darwin Kelly MD - When: 2 - 3 days - Reason: Recheck today's complaints, Continuance of care, Re-evaluation by your physician Discharge Instructions: - Discharge Summary Sheet jmm - Nonspecific Chest Pain, Adult jmm Forms: - Medication Reconciliation Form jm - Thank You Letter jm - Antibiotic Education m - Prescription Opioid Use jm Signatures: Dispatcher [employer] EDMS Jc Villegas MD MD cha Mickail, Joel, PA PA jmYessica Bolton RN RN Oseas Lieberman RN RN 3 Rachael Finn PA PA en Corrections: (The following items were deleted from the chart) 21:23 19:40 Chest Single View+RAD.RAD.BRZ ordered. EDMS EDMS
[2021-12-31 22:30] VITALS: TEMP 97.9
[2021-12-31 22:34] VITALS: BP 110/78; O2SAT 99
--- NOTE | 2022-01-01 13:21 | EKG ---
Test Date: 2021-12-31 Test Time: 18:52:21 Assistant Production Manager: EMANI MEASUREMENT RESULTS: Intervals: Rate: 72 NM: 150 QRSD: 86 QT: 408 QTc: 446 [place]: P: 71 NM: 150 QRS: -39 T: 65 INTERPRETIVE STATEMENTS: Normal sinus rhythm Left axis deviation Abnormal ECG Compared to ECG 08/15/2021 16:24:53 Left-axis deviation now present Electronically Signed On 01-01-22 13:19:13 CDT by Charles Murray
== END 2021-12-31 22:24 | disposition home or self-care (01) ==
LOC: ER 18:17
DX: R07.9 Chest pain, unspecified (principal); J44.9 Chronic obstructive pulmonary disease, unspecified; K75.9 Inflammatory liver disease, unspecified; F17.210 Nicotine dependence, cigarettes, uncomplicated
CPT/HCPCS: 36415; 80048; 84484; 85025; 93005; 99285

== ENCOUNTER 2024-03-07 21:13 | Emergency (ER) | payer OTHER, SELFPAY ==
--- OUTSIDE RECORDS SUMMARY | 2024-03-07 21:15 | XMS REPORT | Clinical Summary ---
Author Name Unknown Organization [facility] Address [address] [place] [address] Care Team Providers Care Manager Managed [employer] Name Role Phone Unavailable Primary Care Provider Unavailabl e Allergies No known active allergies Medications Medication Sig Dispensed Refills Start Date End Date Status L.ACID/L.CASEI/B.BIF/B. BRITTNI/FOS (PROBIOTIC BLEND ORAL) Take by mouth. Active naproxen sodium (ALEVE) 220 MG tablet Take 220 mg by mouth 2 (two) times a day with meals. Active ibuprofen (ADVIL,MOTRIN) 200 mg tablet Take by mouth. Active aspirin 81 mg EC tablet Take 81 mg by mouth. Active Social History Tobacco Use Types Packs/Day Years Used Date Smoking Tobacco: Former Sex and Gender Information Value Date Recorded Sex Assigned at Not on file Gender Identity Not on file Sexual Orientation Not on file Obstetrics History Plan of Treatment Not on file
[2024-03-07 23:18] LABS: Absolute Lymphocytes (CBC) 2.1 K/uL (0.7-4.9); Absolute Monocytes 0.6 K/uL (0.1-1.3); Absolute Neutrophil 4.6 K/uL (1.8-8.0); Basophils % 0.5 % (0-1.3); Eosinophils % 0.4 % (0-4.4); Hematocrit 47.2 % (36.0-45.0); Hemoglobin 15.3 g/dL (12.0-15.0); Lymphocytes % 27.9 % (15.3-44.8); MCH 28.7 pg (27.0-35.0); MCHC 32.4 g/dL (32.0-36.0); MCV 88.7 fL (80-100); MPV 10.1 fL (7.6-11.3); Monocytes % 8.7 % (3.3-12.3); Neutrophils % 62.5 % (41.7-73.7); Nucleated Red Blood Cells % 0.3 % (0-0); Platelets 165 thou/uL (152-406); RBC Red Blood Cell Count 5.33 M/uL (3.86-4.86); Red Cell Distribution Width 15.3 % (12.1-15.2)
[2024-03-07 23:23] LABS: PT Prothrombin Time 10.1 SECONDS (9.4-12.5); PTT, Activated Partial Thromb 32.7 SECONDS (24.3-36.9); Protime INR 0.9
[2024-03-08 00:01] LABS: ALT/SGPT 28 U/L (13-56); AST/SGOT 19 U/L (15-37); Albumin 3.5 g/dL (3.4-5.0); Albumin/Globulin Ratio 0.9 (1.1-1.8); Alkaline Phosphatase 96 U/L (45-117); Anion Gap 8.1 mEq/L (5.0-15.0); BUN Blood Urea Nitrogen 18 mg/dL (7-18); Bicarbonate 31 mEq/L (21-32); Bilirubin Total 0.4 mg/dL (0.2-1.0); Globulin 4.1 g/dL (2.3-3.5); Glomerular Filtration Rate 90 ml/min (=/>90); Glucose Level 84 mg/dL (74-106); Potassium 4.1 mEq/L (3.5-5.1); Protein, Total 7.6 g/dL (6.4-8.2); Sodium Level 137 mEq/L (136-145)
[2024-03-08 00:06] LABS: Bilirubin Direct < 0.2 mg/dL (0-0.2); Bilirubin Indirect, Calculated 0.2 mg/dL (0.2-0.8)
[2024-03-08] MEDS ORDERED: NA CHLORIDE 0.9% 1,000 ML ONE (00:29)
[2024-03-08 01:01] LABS: Specific Gravity 1.025 (1.005-1.030); Sqamous Epithelial <5 /HPF (None Seen); Urine Bacteria None Seen /HPF (<20); Urine Bilirubin NEGATIVE (Negative); Urine Blood Negative (Negative); Urine Clarity Turbid (Clear); Urine Color Yellow (Yellow); Urine Culture Reflex Order NOT NEEDED; Urine Glucose NEGATIVE (Negative); Urine Ketones 3+ (Negative); Urine Microscopic Reflex YN ORDER UMIC; Urine Mucus 3+ /HPF (None Seen); Urine Nitrite NEGATIVE (Negative); Urine Protein TRACE (Negative); Urine RBC <5 /HPF (None Seen); Urine Urobilinogen Normal (Normal); Urine WBC <5 /HPF (<5); Urine pH 5.5 (5.0-7.0)
[2024-03-08 01:02] LABS: Barbiturates NEGATIVE (NEGATIVE); Benzodiazepines POSITIVE (NEGATIVE); Cocaine POSITIVE (NEGATIVE); METHAMPHETAM POSITIVE (NEGATIVE); Methadone NEGATIVE (NEGATIVE); Opiates NEGATIVE (NEGATIVE); Phencyclidine NEGATIVE (NEGATIVE); THC Cannibis NEGATIVE (NEGATIVE)
--- NOTE | 2024-03-08 01:31 | ER ---
Nurse's Notes [facility] Name: Jeanette Villalta Age: 59 yrs Sex: Female : 1965 Arrival Date: 03/07/2024 Time: 21:13 Bed 13 Private MD: Diagnosis: Suicidal ideations;Major depressive disorder, single episode, unspecified;Other psychoactive substance abuse;Abuse of other non-psychoactive substances Presentation: 03/07 21:13 Chief complaint: EMS states: Pt's son called 911 due to patient taking different pills cm10 in an attempt to kill herself. EMS reports that patient has been under a lot of stress. When pt is asked if she did this in an attempt to hurt herself, patient states "Yeah I guess. I took whatever I could get my hands on." Pt reports taking Xanax X3, Klonopin X1, Oxycodone X1, Valium X2, speed, crack, and Cocaine. Coronavirus screen: Client denies travel out of the [place] in the last 14 days. At this time, the client does not indicate any symptoms associated with coronavirus-19. Ebola Screen: Patient denies travel to an Ebola-affected area in the 21 days before illness onset. No symptoms or risks identified at this time. Initial Sepsis Screen: Does the patient meet any 2 criteria? No. Patient's initial sepsis screen is negative. Does the patient have a suspected source of infection? No. Patient's initial sepsis screen is negative. Risk Assessment: Do you want to hurt yourself or someone else? Patient reports desire/thoughts of hurting themselves or someone else. Provider notified. 21:22 Onset of symptoms was March 07, 2024. 10 21:22 Method Of Arrival: EMS: [facility] 10 21:22 Acuity: CHANDLER 2 cm10 Triage Assessment: 20:18 General: Appears in no apparent distress. Behavior is calm, cooperative, appropriate rg5 for age. Pain: Denies pain. EENT: No deficits noted. Neuro: Level of Consciousness is awake, alert, obeys commands, Oriented to person, place, time. Cardiovascular: Denies chest pain, Heart tones S1 S2 Capillary refill < 3 seconds Patient's skin is warm and dry. Respiratory: Airway is patent Trachea midline Respiratory effort is even, unlabored, Respiratory pattern is regular, symmetrical. GI: Abdomen is round Abd is soft and non tender X 4 quads. : No signs and/or symptoms were reported regarding the genitourinary system. Derm: Skin is intact, Skin is dry, Skin is normal, Skin temperature is warm. Musculoskeletal: Range of motion: intact in all extremities. Historical: - Allergies: 21:26 GABAPENTIN; cm10 - Home Meds: 21: aspirin 81 mg oral tablet,chewable [Active]; cm10 - PMHx: 21:26 Chronic obstructive lung disease; Hepatitis; cm10 - PSHx: 21:26 Ovary removal; Tonsillectomy; cm10 - Immunization history:: Adult Immunizations up to date. - Infectious Disease History:: Denies. - Social history:: Patient uses alcohol, occasionally. only on a social basis. Wine today; smoked half pack of cigarettes. Smoking status: Patient reports the use of cigarette tobacco products, smokes one-half pack cigarettes per day. Screenin:18 [facility] ED Fall Risk Assessment (Adult) History of falling in the last 3 months, rg5 including since admission No falls in past 3 months (0 pts) Confusion or Disorientation No (0 pts) Intoxicated or Sedated No (0 pts) Impaired Gait No (0 pts) Mobility Assist Device Used No (0 pt) Altered Elimination No (0 pt) Score/Fall Risk Level 0 - 2 = Low Risk Oriented to surroundings, Maintained a safe environment, Provided non-skid footwear, Hourly rounding (assess needs \\T\\ fall precautionary measures) done. 21:18 Abuse screen: Denies threats or abuse. Nutritional screening: No deficits noted. rg5 Tuberculosis screening: No symptoms or risk factors identified. Assessment: 21:18 General: Appears comfortable, Behavior is calm, cooperative. rg5 21:18 Pain: Denies pain. Neuro: Level of Consciousness is awake, alert, obeys commands, rg5 Oriented to person, place, time, situation. Cardiovascular: Denies chest pain, Heart tones S1 S2 Capillary refill < 3 seconds Patient's skin is warm and dry. Respiratory: Airway is patent Trachea midline Respiratory effort is even, unlabored, Respiratory pattern is regular, symmetrical. GI: Abdomen is round non-distended, Abd is soft and non tender X 4 quads. : No signs and/or symptoms were reported regarding the genitourinary system. EENT: No deficits noted. Derm: Skin is intact, Skin is dry, Skin is normal, Skin temperature is warm. Musculoskeletal: Range of motion: intact in all extremities. 22:00 Reassessment: No changes from previously documented assessment. Patient and/or family rg5 updated on plan of care and expected duration. Pain level reassessed. Patient denies pain at this time. 03/08 00:00 Reassessment: No changes from previously documented assessment. . rg5 00:00 Respiratory: Respiratory effort is even, unlabored, Respiratory pattern is regular, rg5 symmetrical. 02:00 Reassessment: No changes from previously documented assessment. rg5 02:00 Respiratory: Respiratory effort is even, unlabored, Respiratory pattern is regular, rg5 symmetrical. 04:00 Reassessment: No changes from previously documented assessment. rg5 04:00 Reassessment: eyes closed. Respiratory: Airway is patent Respiratory effort is even, ha1 unlabored, Respiratory pattern is regular, symmetrical. 06:09 Reassessment: No changes from previously documented assessment. rg5 06:09 Respiratory: Airway is patent Trachea midline Respiratory effort is even, unlabored, rg5 relaxed, Respiratory pattern is regular, symmetrical. 08:00 Reassessment: RECD REPORT FROM JOON DESAI. 59YO WF P/W SI AND INGE[address]RE[address] AND bp PRESCRIBED MEDS. PT MEDICALLY CLEARED, PSYCH PENDING. 11:55 Reassessment: Family brought 2 packs of cigarettes for patient, given to security with hb patient label. 03/09 05:58 Reassessment: requesting reevaluation by [facility]. States "I am no longer feeling ha1 suicidal I can go get treatment as an out patient ". 07:15 Reassessment: Patient appears in no apparent distress at this time. Patient and/or db family updated on plan of care and expected duration. Pain level reassessed. Patient is alert, oriented x 3, equal unlabored respirations, skin warm/dry/pink. SAFETY PLAN COMPLETED AND SIGNED. General: Appears in no apparent distress. comfortable, Behavior is calm, cooperative. 07:43 Reassessment: PATIENT DC WAS PENDING BELONGINGS. PROVIDED PT BELONGINGS FROM SECURITY. db Psych: 03/07 21:18 [place] Suicide Severity Screening: In the past month, have you wished you were rg5 or wished you could go to sleep and not wake up? Patient responds "yes." "In the past month, have you actually had any thoughts of killing yourself?" Patient responds "yes." "In your lifetime, have you ever done anything, started to do anything, or prepared to do anything to end your life?" Patient responds "no.". 21:18 Subjective: Patient's mood is sad, Having thoughts of suicide. Denies suicidal plan. rg5 Objective: Patient is cooperative, Speech is normal, Affect is flat. Interventions: Removed personal items and placed in bag. Patient placed in hospital gown. Searched person for dangerous items. Urine collected and sent for urine drug test. Belonging list filled out. Safety Checks: Personal items have been removed. Door is open. No visitors are present at this time. 21:18 Patient uses benzodiazepines Patient uses cocaine, Patient uses methamphetamines Last rg5 use was 4 hours ago. Vital Signs: 21:22 Weight 54.43 kg; Height 5 ft. 1 in. ; cm10 21:25 BP 149 / 71; Pulse 83; Resp 16; Temp 98.1; Pulse Ox 96% on R/A; cm10 08/11 01:00 BP 120 / 63; Pulse 68; Temp 98.3; Pulse Ox 96% ; bf2 05:00 BP 123 / 72; Pulse 69; Pulse Ox 96% ; bf2 12:14 BP 100 / 55; Pulse 73; Resp 18; Temp 98.1; Pulse Ox 93% on R/A; Pain 0/10; em1 0812 07:15 BP 112 / 58; Pulse 68; Resp 16; Temp 98; Pulse Ox 97% on R/A; db 08/10 21:22 Body Mass Index 22.67 (54.43 kg, 154.94 cm) cm10 12:14 Pain Scale: Adult em1 ED Course: 03/07 21:18 Patient arrived in ED. ha1 21:18 Safety Checks: Sitter present at this time. rg5 21:18 Arm band placed on left wrist. rg5 21:18 Bed in low position. Valuables inventory done. See valuables checklist. rg5 21:25 Triage completed. cm10 21:25 EKG completed in triage. Results shown to MD. rg5 21:36 POISON CONTROL CONTACTED AT THIS TIME. 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 PT NEEDS TOXICOLOGY WORK UP, BASELINE EKG AND TO BE ON CARDIAC MONITORING. PER ADIA NO FLUMAZENIL TO BE USED FOR BENZO OVERDOSE. PATIENT CAN BE MEDICALLY CLEARED AT PHYSICIAN'S DISCRETION. CASE #[id number]. 21:42 Joon Aragon, RN is Primary Nurse. rg5 22:00 No apparent distress. Resting quietly. rg5 22:00 Awaiting lab results. rg5 22:00 Inserted saline lock: 22 gauge in right forearm, using aseptic technique. Blood rg5 collected. Flushed with 10 mL NS. 22:03 Lawrence Grover MD is Attending Physician. bo1 08 00:00 Appears to be sleeping. rg5 00:00 Safety Checks: Sitter present at this time. rg5 00:00 Lights dimmed. Warm blanket given. rg5 00:46 Urinalysis w/ reflexes Sent. bf2 00:46 Urine Drug Screen Sent. bf2 02:00 Appears to be sleeping. rg5 02:00 transfer approval from receiving facility. rg5 02:11 Contacted [facility] \\T\\[id number], spoke with collette Barajas to call back. af3 04:32 Appears to be sleeping. rg5 04:46 Faxed documents and face sheet to Kathleen from [facility] fax [phone] \\[id number]. af3 05:24 [facility] on phone with pt. af3 06:10 Resting quietly. Appears to be sleeping. rg5 11:31 refaxed clinicals to [facility] in attempt to find eb placement. 19:00 Bed in low position. Warm blanket given. kmf 19:59 No apparent distress. transfer. jm12 20:00 Patient has correct armband on for positive identification. sitter at bedside. jm12 20:51 [place] [facility]:01 Attending Physician role handed off by Lawrence Grover MD ms3 23:01 Kostas Briscoe DO is Attending Physician. ms3 23:30 Notified ED physician of other pt requesting medication to help with restlessness. [facility] 03/09 05:59 PT REQUESTED TO BE RE SCREENED BY [facility]. rv1 07:15 Provided Education on: DISCHARGE, FOLLOWUP AND SAFETY PLAN. db 07:15 No provider procedures requiring assistance completed. IV discontinued, intact, db bleeding controlled, No redness/swelling at site. Administered Medications: 03/08 00:45 Drug: NS 0.9% IV 1000 ml IV at 125 ml/hr continuous Route: IV; Rate: 125 ml/hr; Site: rg5 right forearm; 03:19 Follow up: Response: No adverse reaction; IV Status: Completed infusion rg5 03/09 00:04 Drug: diphenhydrAMINE PO 50 mg PO once Route: PO; jm12 07:44 Follow up: Response: No adverse reaction db Medication: 03/07 20:18 VIS not applicable for this client. rg5 Outcome: 03/08 01:30 ER care complete, transfer ordered by . boEd 03/09 06:51 Discharge ordered by MD. ms3 07:15 Discharged to home ambulatory, db 07:15 Condition: stable 07:15 Discharge instructions given to patient, Instructed on discharge instructions, follow up and referral plans. 07:44 Patient left the ED. db Signatures: Jasmyne Felipe Eric em1 Aundrea Clement, RN RN Jerzy Whitten, RN RN bp Rachael Salinas Marcus, DO ms3 Kristina Infante RN RN ha1 Cara Tapia, RN RN db Ana Jauregui rv1 [place] Vick RN RN cmBrisa Khan [facility] Ketan Porter 2 Lawrence Grover MD MD bo1 Joon Aragon RN RN rg5 Coreen Ojeda RN RN [facility] Jessa Brower3 Corrections: (The following items were deleted from the chart) 03/07 21:26 21:22 Chief complaint: EMS states: Pt's son called 911 due to patient taking different cm10 pills in an attempt to kill herself. EMS reports that patient has been under a lot of stress. When pt is asked if she did this in an attempt to hurt herself, patient states "Yeah I guess. I took whatever I could get my hands on." Pt reports taking Xanax X3, Klonopin X1, Oxycodone X1, Valium X2, speed, crack, and Cocaine. cm10 21:26 21:22 Coronavirus screen: Client denies travel out of the [place] in the last 14 days. At 10 this time, the client does not indicate any symptoms associated with coronavirus-19. 10 21:26 21:22 Ebola Screen: Patient denies travel to an Ebola-affected area in the 21 days cm10 before illness onset. No symptoms or risks identified at this time. 10 21:26 21:22 Initial Sepsis Screen: Does the patient meet any 2 criteria? No. Patient's 10 initial sepsis screen is negative. Does the patient have a suspected source of infection? No. Patient's initial sepsis screen is negative. 10 21:26 21:22 Risk Assessment: Do you want to hurt yourself or someone else? Patient reports [facility] desire/thoughts of hurting themselves or someone else. Provider notified. [facility] 21:32 21:25 BP 149 / 71; Pulse 83bpm; Pulse Ox 96%; Temp 98.1F; bf2 10 03/08 00:36 03/07 20:18 General: Appears comfortable, Behavior is calm, cooperative, appropriate rg5 for age, rg5 03/08 00:47 03/07 20:18 Pain: Denies pain. rg5 5 03/08 00:47 03/07 20:18 Neuro: Level of Consciousness is awake, alert, obeys commands, Oriented to rg5 person, place, time, Reports Denies weakness numbness rg5 03/08 00:47 03/07 20:18 Cardiovascular: Denies chest pain, Heart tones S1 S2 Capillary refill < 3 rg5 seconds Patient's skin is warm and dry. rg5 03/08 00:47 03/07 20:18 Respiratory: Airway is patent Trachea midline Respiratory effort is even, rg5 unlabored, Respiratory pattern is regular, symmetrical, Breath sounds are clear bilaterally. rg5 03/08 00:47 03/07 20:18 GI: Abdomen is round non-distended, Bowel sounds present in left lower rg5 quadrant Abd is soft and non tender X 4 quads. rg5 03/08 00:47 03/07 20:18 : No signs and/or symptoms were reported regarding the genitourinary rg5 system. rg5 03/08 00:47 03/07 20:18 EENT: No deficits noted. rg5 rg5 03/08 00:47 03/07 20:18 Derm: Skin is intact, Skin is dry, Skin is normal, Skin temperature is warm [place] [id number] 03/08 00:47 03/07 20:18 Musculoskeletal: Range of motion: intact in all extremities, [place] [id number] 03/08 00:48 03/07 20:18 Arm band placed on left wrist. [place] [id number] 03/08 00:48 03/07 20:18 EKG completed in triage. Results shown to MD. [place] [id number] 03/08 00:49 03/07 20:18 [facility] ED Fall Risk Assessment (Adult) History of falling in the last 3 [facility] months, including since admission No falls in past 3 months (0 pts) Confusion or Disorientation No (0 pts) Intoxicated or Sedated No (0 pts) Impaired Gait No (0 pts) Mobility Assist Device Used No (0 pt) Altered Elimination No (0 pt) Score/Fall Risk Level 0 - 2 = Low Risk Oriented to surroundings, Maintained a safe environment, Provided non-skid footwear, Hourly rounding (assess needs \\T\\ fall precautionary measures) done, [facility] 03/08 00:49 03/07 20:18 Abuse screen: Denies threats or abuse. [place] [id number] 03/08 00:49 03/07 20:18 Nutritional screening: No deficits noted. [place] [id number] 03/08 00:49 03/07 20:18 Tuberculosis screening: No symptoms or risk factors identified. [place] [id number] 03/08 06:28 00:00 Reassessment: No changes from previously documented assessment. . [place] [id number] 06: 02:00 Reassessment: No changes from previously documented assessment. [place] [id number]
--- NOTE | 2024-03-08 01:31 | EDPHYS ---
Physician Documentation [facility] Name: Jeanette Villalta Age: 59 yrs Sex: Female : 1965 Arrival Date: 03/07/2024 Time: 21:13 Bed 13 Private MD: ED Physician Kostas Briscoe HPI: 03/07 22:07 This 59 yrs old Female presents to ER via EMS with complaints of Suicidal Ideation. bo1 22:07 The patient presents to the emergency department with depression, Health and 7 dogs bo1 (pt's need for a colon bx and her 's medical condition). Onset: The symptoms/episode began/occurred gradually, Worse in the last few hours. Past psychiatric history: the patient has had a prior suicide gesture, where the patient took pills/meds. Taken drugs, heroin, crack and speed. Taken oxycontin, xanax, valium. 22:11 Pt told her son and he called 911. bo1 03/08 01:08 Pt reports that she "has a lot to deal with". bo1 Historical: - Allergies: 03/07 21:26 GABAPENTIN; cm10 - Home Meds: 21:26 aspirin 81 mg oral tablet,chewable [Active]; cm10 - PMHx: 21:26 Chronic obstructive lung disease; Hepatitis; cm10 - PSHx: 21:26 Ovary removal; Tonsillectomy; cm10 - Immunization history:: Adult Immunizations up to date. - Infectious Disease History:: Denies. - Social history:: Patient uses alcohol, occasionally. only on a social basis. Wine today; smoked half pack of cigarettes. Smoking status: Patient reports the use of cigarette tobacco products, smokes one-half pack cigarettes per day. ROS: 22:09 Cardiovascular: Negative for chest pain, bo1 22:09 Respiratory: Positive for shortness of breath, Hx of COPD, 03/08 01:08 Neuro: Negative for dizziness, headache, visual changes, bo1 Psych: Positive for depression, suicide gesture, suicidal ideation, 01:09 All other systems are negative, bo1 01:30 Constitutional: Negative for fever, chills bo1 Exam: 03/07 23:27 ECG was reviewed by the Attending Physician. bo1 03/08 01:04 Constitutional: This is a well developed, nourished patient who is awake, alert, and bo1 in no acute distress. Head/face: Exam is negative for acute changes, obvious evidence of injury or deformity, Eyes: Pupils: right pupil is approximately 3 mm(s), left pupil is approximately 3 mm(s), Neck: External neck: no acute changes, Cardiovascular: Rate: normal, Rhythm: regular, Pulses: no pulse deficits are appreciated, Respiratory: the patient does not display signs of respiratory distress, Respirations: normal, Breath sounds: no acute changes, Abdomen/GI: Inspection: abdomen appears normal, Musculoskeletal/extremity: Extremities: all appear grossly normal, with no appreciated pain with palpation, no acute changes, Skin: injury, is not appreciated, Neuro: Orientation: appropriate for stated age, Mentation: appropriate for stated age, Memory: is normal, Psych: Behavior/mood is cooperative, suicidal, depressed, Vital Signs: 03/07 21:22 Weight 54.43 kg; Height 5 ft. 1 in. ; cm10 21:25 BP 149 / 71; Pulse 83; Resp 16; Temp 98.1; Pulse Ox 96% on R/A; cm10 03/08 01:00 BP 120 / 63; Pulse 68; Temp 98.3; Pulse Ox 96% ; bf2 05:00 BP 123 / 72; Pulse 69; Pulse Ox 96% ; bf2 12:14 BP 100 / 55; Pulse 73; Resp 18; Temp 98.1; Pulse Ox 93% on R/A; Pain 0/10; em1 03/09 07:15 BP 112 / 58; Pulse 68; Resp 16; Temp 98; Pulse Ox 97% on R/A; db 03/07 21:22 Body Mass Index 22.67 (54.43 kg, 154.94 cm) cm10 12:14 Pain Scale: Adult em1 MDM: 03/07 22:03 Patient medically screened. bo1 03/08 01:09 Differential diagnosis: depression, Suicidal risk is high. ED course: Stable but bo1 self-harm thoughts and wishes are still present. 01:10 Data reviewed: vital signs, lab test result(s), CBC, drug level(s), electrolytes, bo1 urinalysis, urine drug screen, EKG, drug levels. 01:15 Management of patient was discussed with the following: Charge nurse - Jhoana (XIN to be bo1 considered). 01:16 Special discussion: Pt deemed medically stable for psych evaluation. bo1 23:01 ED course: Patient re-evaluated. Patient calm and cooperative. Informed patient [address] recommended inpatient treatment. Patient understood recommendations. Patient states last night she became depressed when she realized she cannot care for her 7 dogs anymore and will need to get rid of them as she has raised them from babies.. 23:57 ED course: Patient requesting medication to help her sleep. 50 mg Benadryl PO ordered.. ms3 03/09 06:51 I considered the following discharge prescriptions or medication management in the [facility] [place] Medications were administered in the Emergency Department. See MAR. 06:51 Independent interpretation of the following test(s) in the Emergency Department EKG: pr3 See my EKG interpretation above. Care significantly affected by the following chronic conditions: Chronic Obstructive Pulmonary Disease. Counseling: I had a detailed discussion with the patient and/or guardian regarding the historical points, exam findings, and any diagnostic results supporting the discharge/admit diagnosis, lab results, the need for outpatient follow up, to return to the emergency department if symptoms worsen or persist or if there are any questions or concerns that arise at home. ED course: Ami at [facility] reevaluated patient and a safety plan was completed. Patient is to follow-up with [facility] in the next couple of days. Patient is no longer suicidal and denies homicidal ideation, or hallucinations. Patient is alert and oriented x 4, no apparent distress, nontoxic-appearing, speaking full sentences, ambulatory in the emergency department. All questions were answered. Return precautions discussed include feeling sad, thoughts of self-harm, homicidal ideations or thoughts of of harming others, hallucinations, worsening symptoms, or any other concerns.. 03/07 21:36 Order name: Acetaminophen; Complete Time: 00:29 cm10 03/07 21:36 Order name: Basic Metabolic Panel; Complete Time: 00:29 cm10 03/07 21:36 Order name: CBC with Diff; Complete Time: 23:31 cm10 03/07 21:36 Order name: ETOH Level; Complete Time: 23:31 cm10 03/07 21:36 Order name: Hepatic Function; Complete Time: 00:29 cm10 03/07 21:36 Order name: PT-INR; Complete Time: 23:31 cm10 03/07 21:36 Order name: Ptt, Activated; Complete Time: 23:31 cm10 03/07 21:36 Order name: Salicylate; Complete Time: 23:31 cm10 03/07 21:36 Order name: Urinalysis w/ reflexes; Complete Time: 01:04 cm10 03/07 21:36 Order name: Urine Drug Screen; Complete Time: 01:04 cm10 03/07 21:36 Order name: EKG; Complete Time: 21:36 cm10 03/07 21:36 Order name: EKG - Nurse/Tech; Complete Time: 22:11 cm10 03/07 21:36 Order name: IV Saline Lock; Complete Time: 22:11 cm10 03/07 21:36 Order name: Labs collected and sent; Complete Time: 22:11 cm10 10 21:36 Order name: Suicide Precautions; Complete Time: 22:11 cm10 03/07 21:36 Order name: Suicide Screening ([place]); Complete Time: 22:11 cm10 EC/10 23:27 Rate is 74 beats/min. Rhythm is regular. QRS [place] is Normal. [place] interval is normal. QRS bo1 interval is normal. QT interval is prolonged. Q waves are Present in leads aVR, V1. T waves are Inverted in lead aVR. No ST changes noted. Clinical impression: Normal ECG, Anterior [place] - age indeterminate, and Inferior [place] - age indeterminate. Interpreted by me. Reviewed by me. Administered Medications: 03/08 00:45 Drug: NS 0.9% IV 1000 ml IV at 125 ml/hr continuous Route: IV; Rate: 125 ml/hr; Site: [facility] right forearm; 03:19 Follow up: Response: No adverse reaction; IV Status: Completed infusion [facility] 03/09 00:04 Drug: diphenhydrAMINE PO 50 mg PO once Route: PO; [facility] 07:44 Follow up: Response: No adverse reaction db Disposition Summary: 03/09/24 06:51 Discharge Ordered Notes: Location: Home ms3 Condition: Stable(03/09/24 06:51) ms3 Diagnosis - Suicidal ideations(03/09/24 06:51) ms3 - Major depressive disorder, single episode, unspecified ms3 - Other psychoactive substance abuse(03/09/24 06:51) ms3 - Abuse of other non-psychoactive substances(03/09/24 06:51) ms3 Followup: ms3 - With: Private Physician - When: 2 - 3 days - Reason: Recheck today's complaints Discharge Instructions: - Discharge Summary Sheet db Forms: - Medication Reconciliation Form ms3 - Antibiotic Education ms3 - Prescription Opioid Use ms3 - Patient Portal Instructions ms3 - Leadership Thank You Letter ms3 - Work release form db Signatures: Dispatcher [employer] EDKostas Crowe, DO ms3 [place]ia Vick, RN RN cm10 Lawrence Grover MD MD bo1 Kevin Aragon RN RN rg5 Coreen Ojeda RN RN jm12 Cara Tapia RN db Corrections: (The following items were deleted from the chart) 06:49 08 01:30 Psyc (mental health) [facility] ms3 03/09 06:49 03/08 01:30 Psych Facility [facility] ms3 03/09 06:49 03/08 01:30 Higher level of care bo ms3 03/09 06:49 03/08 01:30 Fair [facility] ms3 03/09 06:49 03/08 01:30 an acute exacerbation bo ms3 03/09 06:49 03/08 01:30 are unchanged bo ms3 03/09 06:49 03/08 01:30 Suicidal ideations bo ms3 03/09 06:49 03/08 01:30 Suicide attempt bo1 ms3 03/09 06:49 03/08 01:30 Major depressive disorder, recurrent, unspecified bo1 ms3 03/09 06:49 03/08 01:30 Other psychoactive substance abuse bo ms3 03/09 06:49 03/08 01:30 Abuse of other non-psychoactive substances [facility] ms3
[2024-03-09] MEDS ORDERED: DIPHENHYDRAMINE 25 MG TAB/CAP ONE (00:02)
[2024-03-09 08:11] VITALS: BP 112/58; TEMP 98; O2SAT 97
--- NOTE | 2024-03-09 13:48 | EKG ---
Test Date: 2024-03-07 Test Time: 22:11:44 First Beater: EVIE MEASUREMENT RESULTS: Intervals: Rate: 80 MO: 162 QRSD: 84 QT: 424 QTc: 489 [place]: P: 71 MO: 162 QRS: 260 T: 43 INTERPRETIVE STATEMENTS: Normal sinus rhythm with sinus arrhythmia Right superior axis deviation Cannot rule out Anterior infarct, age undetermined Abnormal ECG Compared to ECG 12/31/2021 18:52:21 Right superior axis now present Myocardial infarct finding now present Left-axis deviation no longer present Electronically Signed On 03-09-24 13:45:06 CDT by Charles Murray
== END 2024-03-09 07:44 | disposition home or self-care (01) ==
LOC: ER 21:13
DX: R45.851 Suicidal ideations (principal); F32.A Depression, unspecified; F19.10 Other psychoactive substance abuse, uncomplicated; F55.8 Abuse of other non-psychoactive substances; F17.210 Nicotine dependence, cigarettes, uncomplicated; J44.9 Chronic obstructive pulmonary disease, unspecified; Z79.82 Long term (current) use of aspirin
CPT/HCPCS: 36415; 80048; 80076; 80143; 80179; 81001; 82077; 85025; 85610; 85730; 93005

== ENCOUNTER 2024-08-31 22:45 | Emergency (ER) | payer OTHER ==
--- OUTSIDE RECORDS SUMMARY | 2024-08-31 22:47 | XMS REPORT | Clinical Summary ---
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 Active naproxen sodium (ALEVE) 220 MG tablet Take 220 mg by mouth 2 (two) times a day with meals. Active ibuprofen (ADVIL,MOTRIN) 200 mg tablet Take by mouth. Active aspirin 81 mg EC tablet Take 81 mg by mouth. Active Social History Tobacco Use Types Packs/Day Years Used Date Smoking Tobacco: Former Comments Unknown Sex and Gender Information Value Date Recorded Sex Assigned at Not on file Legal Sex Female 7:44 PM CDT Gender Identity Not on file Sexual Orientation Not on file Obstetrics History Plan of Treatment Not on file
[2024-09-01] MEDS ORDERED: ZIPRASIDONE MESYLA 20 MG/VIAL IM ONE (00:08)
[2024-09-01] MEDS ORDERED: WATER FOR INJ,STERILE 10 ML ONE (00:10)
[2024-09-01 00:17] LABS: Specific Gravity 1.011 (1.005-1.030); Sqamous Epithelial <5 /HPF (None Seen); Urine Bacteria <20 /HPF (<20); Urine Bilirubin NEGATIVE (Negative); Urine Blood Negative (Negative); Urine Clarity Turbid (Clear); Urine Color Light-Yellow (Yellow); Urine Culture Reflex Order NOT NEEDED; Urine Glucose NEGATIVE (Negative); Urine Ketones NEGATIVE (Negative); Urine Microscopic Reflex YN ORDER UMIC; Urine Mucus Slight /HPF (None Seen); Urine Nitrite NEGATIVE (Negative); Urine Protein NEGATIVE (Negative); Urine RBC None Seen /HPF (None Seen); Urine Urobilinogen Normal (Normal); Urine WBC <5 /HPF (<5); Urine pH 5.5 (5.0-7.0)
[2024-09-01 00:37] LABS: Barbiturates NEGATIVE (NEGATIVE); Benzodiazepines NEGATIVE (NEGATIVE); Cocaine NEGATIVE (NEGATIVE); METHAMPHETAM NEGATIVE (NEGATIVE); Methadone NEGATIVE (NEGATIVE); Opiates NEGATIVE (NEGATIVE); Phencyclidine NEGATIVE (NEGATIVE); THC Cannibis NEGATIVE (NEGATIVE)
[2024-09-01 05:52] LABS: ALT/SGPT 33 U/L (13-56); AST/SGOT 23 U/L (15-37); Albumin 3.3 g/dL (3.4-5.0); Albumin/Globulin Ratio 0.8 (1.1-1.8); Alkaline Phosphatase 90 U/L (45-117); Anion Gap 7.8 mEq/L (5.0-15.0); BUN Blood Urea Nitrogen 10 mg/dL (7-18); Bicarbonate 26 mEq/L (21-32); Bilirubin Total 0.3 mg/dL (0.2-1.0); Globulin 4.2 g/dL (2.3-3.5); Glomerular Filtration Rate 103 ml/min (=/>90); Glucose Level 73 mg/dL (74-106); Potassium 3.8 mEq/L (3.5-5.1); Protein, Total 7.5 g/dL (6.4-8.2); Sodium Level 142 mEq/L (136-145)
[2024-09-01 05:53] LABS: Bilirubin Direct < 0.2 mg/dL (0-0.2); Bilirubin Indirect, Calculated 0.1 mg/dL (0.2-0.8)
[2024-09-01 06:11] LABS: PT Prothrombin Time 9.8 SECONDS (9.4-12.5); PTT, Activated Partial Thromb 28.8 SECONDS (24.3-36.9); Protime INR 0.93
[2024-09-01 06:31] LABS: Absolute Eosinophils 0.2 K/uL (0-0.5); Absolute Lymphocytes (CBC) 5.5 K/uL (0.7-4.9); Absolute Monocytes 0.6 K/uL (0.1-1.3); Basophils % 0.6 % (0-1.3); Eosinophils % 2.7 % (0-4.4); Hematocrit 45.7 % (36.0-45.0); Hemoglobin 14.8 g/dL (12.0-15.0); Lymphocytes % 65.2 % (15.3-44.8); MCH 28.9 pg (27.0-35.0); MCHC 32.5 g/dL (32.0-36.0); MCV 88.8 fL (80-100); MPV 10.4 fL (7.6-11.3); Monocytes % 7.1 % (3.3-12.3); Neutrophils % 24.4 % (41.7-73.7); Nucleated Red Blood Cells % 0.1 % (0-0); Platelets 158 thou/uL (152-406); RBC Red Blood Cell Count 5.14 M/uL (3.86-4.86); Red Cell Distribution Width 15.6 % (12.1-15.2)
--- NOTE | 2024-09-01 07:39 | ER ---
Nurse's Notes [facility] Name: Jeanette Villalta Age: 59 yrs Sex: Female : 1965 Arrival Date: 08/31/2024 Time: 22:45 Bed 17 Private MD: Diagnosis: Depressive disorder with exacerbation, impulse control disorder, suicide attempt, bilateral wrist abrasions, alcohol abuse with intoxication Presentation: 08/31 22:45 Chief complaint: EMS states: patient has cuts on wrist, attempted suicide, suicidal kj2 ideation. Coronavirus screen: Client denies travel out of the [place] in the last 14 days. Ebola Screen: No symptoms or risks identified at this time. Initial Sepsis Screen: Does the patient meet any 2 criteria? No. Patient's initial sepsis screen is negative. Does the patient have a suspected source of infection? No. Patient's initial sepsis screen is negative. Risk Assessment: Do you want to hurt yourself or someone else? Patient reports no desire to harm self or others. Onset of symptoms was August 31, 2024. 22:45 Method Of Arrival: EMS: [facility] kj2 22:45 Acuity: CHANDLER 3 kj2 Triage Assessment: 22:45 General: Appears in no apparent distress. Behavior is agitated. Pain: Denies pain. kj2 Historical: - Allergies: 22:45 GABAPENTIN; kj2 - PMHx: 09/01 06:43 Chronic obstructive lung disease; Hepatitis; ha1 - PSHx: 06:43 Ovary removal; Tonsillectomy; ha1 - Immunization history:: Adult Immunizations unknown. - Infectious Disease History:: Denies. - Social history:: Smoking status: unknown. - Family history:: not pertinent. Screenin/03 22:45 [facility] ED Fall Risk Assessment (Adult) History of falling in the last 3 months, kj2 including since admission No falls in past 3 months (0 pts) Confusion or Disorientation No (0 pts) Intoxicated or Sedated No (0 pts) Impaired Gait No (0 pts) Mobility Assist Device Used No (0 pt) Altered Elimination No (0 pt) Score/Fall Risk Level 0 - 2 = Low Risk Maintained a safe environment, Hourly rounding (assess needs \\T\\ fall precautionary measures) done. Abuse screen: Denies threats or abuse. Denies injuries from another. Nutritional screening: No deficits noted. Tuberculosis screening: No symptoms or risk factors identified. Assessment: 22:45 General: see triage assessment. kj2 23:45 Reassessment: Patient appears in no apparent distress at this time. Patient and/or kj2 family updated on plan of care and expected duration. Pain level reassessed. Patient is alert, oriented x 3, equal unlabored respirations, skin warm/dry/pink. 09/01 01:38 Reassessment: No changes from previously documented assessment. Patient and/or family rg5 updated on plan of care and expected duration. Pain level reassessed. General: Appears in no apparent distress. comfortable. General: patient is asleep. Respiratory: Airway is patent Trachea midline Respiratory effort is even, unlabored, Respiratory pattern is regular, symmetrical. 02:30 Reassessment: No changes from previously documented assessment. Patient and/or family rg5 updated on plan of care and expected duration. Pain level reassessed. General: Appears in no apparent distress. comfortable. Respiratory: Airway is patent Trachea midline Respiratory effort is even, unlabored, Respiratory pattern is regular, symmetrical. 03:46 Reassessment: Patient and/or family updated on plan of care and expected duration. Pain rg5 level reassessed. Patient is alert, oriented x 3, equal unlabored respirations, skin warm/dry/pink. General: Appears in no apparent distress. comfortable, patient asleep. Respiratory: Airway is patent Trachea midline. 05:30 Reassessment: eyes closed. Respiratory: Airway is patent Respiratory effort is even, ha1 unlabored, Respiratory pattern is regular, symmetrical. 06:50 Reassessment: nurse to nurse report given to LLOYD Barros [facility]. ha1 07:00 Reassessment: Patient appears in no apparent distress at this time. Patient and/or ko1 family updated on plan of care and expected duration. Pain level reassessed. Patient is alert, oriented x 3, equal unlabored respirations, skin warm/dry/pink. Patient denies pain at this time. Psych: 08/31 22:45 [place] Suicide Severity Screening: In the past month, have you wished you were kj2 or wished you could go to sleep and not wake up? Patient responds "yes." "In the past month, have you actually had any thoughts of killing yourself?" Patient responds "yes." "In your lifetime, have you ever done anything, started to do anything, or prepared to do anything to end your life?" Patient responds "yes." Patient reports suicidal intent within 3 past months. Subjective: Patient's mood is irritable, Delusions are denied, Hallucinations are denied Having thoughts of suicide. Denies suicidal plan. Objective: Patient is irritable, Speech is normal, Affect is appropriate, Patient has mutilated themselves by cut her wrists prior to arrival. Interventions: Removed personal items and placed in bag. Patient placed in hospital gown. Searched person for dangerous items. Urine collected and sent for urine drug test. Belonging list filled out. Patient reassessed during use of restraints. Patient is physically safe. Patient's cardiac status is stable. Patient's respirations are even and unlabored. Patient has good circulation in all extremities as indicated by capillary refill < 3 seconds. Patient's ROM assessed and is intact. Patient nutrition and hydration needs will continue to be monitored and addressed. Patient hygiene and elimination needs met. Patient assessed for signs of distress. Patient remains reasonably comfortable at this time. Assisted patient in de-escalation of behavior by removing stimuli causing behavior where possible. Restraints continue to be necessary for patient and staff safety. Safety Checks: Personal items have been removed. Door is open. No visitors are present at this time. Pt denies substance abuse. Commitment: patient is an XIN per [facility] officer. Vital Signs: 22:45 BP 124 / 103; Pulse 96; Resp 20; Temp 98.2; Pulse Ox 96% on R/A; kj2 22:45 Weight 63.96 kg; Height 5 ft. 1 in. ; kj2 09/01 07:51 BP 118 / 84; Pulse 80; Resp 16; Temp 97; Pulse Ox 98% ; ko1 08/31 22:45 Body Mass Index 26.64 (63.96 kg, 154.94 cm) kj2 Pratik Coma Score: 01:21 Eye Response: spontaneous(4). Motor Response: obeys commands(6). Verbal Response: sp4 oriented(5). Total: 15. ED Course: 08/31 22:45 Patient has correct armband on for positive identification. Bed in low position. Call kj2 light in reach. Side rails up X 1. Provided Education on: safety precautions. 22:46 Patient arrived in ED. jj6 22:51 Rohith Villegas MD is Attending Physician. sp4 23:55 Inserted saline lock: 22 gauge in right antecubital area, using aseptic technique. oe Blood collected. Flushed with 10 mL NS. 23:56 Basic Metabolic Panel Sent. oe 23:56 CBC with Diff Sent. oe 23:56 ETOH Level Sent. oe 23:56 Hepatic Function Sent. oe 23:56 PT-INR Sent. oe 23:56 Test, Urine Sent. oe 23:56 Ptt, Activated Sent. oe 23:56 Salicylate Sent. oe 23:56 Urinalysis w/ reflexes Sent. oe 23:56 Urine Drug Screen Sent. oe 09/01 00:02 Yuni Hartman RN is Primary Nurse. kj2 00:21 Triage completed. kj2 01:09 Report given to LLOYD Brown. kj2 01:30 No provider procedures requiring assistance completed. rg5 06:31 Faxed pt clinicals to the following facilities for placement; [address] 07:10 Safety checks: Items removed: yes. Door open/sign placed on door: yes. Family/friend ty present: no. Sitter present: Yes. Patient has correct armband on for positive identification. Allergy band placed. Placed in gown. Bed in low position. Side rails up X 1. Door closed. Noise minimized. Visitors limited. Lights dimmed. Warm blanket given. Pillow given. Verbal reassurance given. Head of bed lowered. Sitter at bedside. 07:20 Primary Nurse role handed off by Yuni Hartman RN bd 07:22 pt accepted in transfer to [facility] by dr edmonds admin approval given by shanna Ruiz 07:51 IV discontinued, intact, bleeding controlled, No redness/swelling at site. Pressure ko1 dressing applied. Administered Medications: 00:16 Drug: Geodon IM 20 mg IM once Route: IM; Site: left gluteus; kj2 00:16 Follow up: Response: No adverse reaction kj2 00:42 Follow up: Response: No adverse reaction kj2 Medication: 08/31 22:45 VIS not applicable for this client. kj2 Outcome: 09/01 07:38 ER care complete, transfer ordered by . sp4 07:50 Discharged to [facility] ko 07:50 Condition: stable 07:50 Discharge instructions given to patient, EMS, Instructed on the need for transfer, Demonstrated understanding of 07:54 Patient left the ED. ko1 Signatures: Brenda Zambrano [place] oe Jeffries, Jennifer jj6 Kristina Infante, RN RN ha1 Irene Rodriguez, RN RN ko1 Ana Jauregui1 Rohith Villegas MD MD sp4 Vargas Escobar Rommel, RN RN rg5 Yuni Hartman RN RN kj2
--- NOTE | 2024-09-01 07:39 | EDPHYS ---
Physician Documentation [facility] Name: Jeanette Villalta Age: 59 yrs Sex: Female : 1965 Arrival Date: 08/31/2024 Time: 22:45 Bed 17 Private MD: ED Physician Rohith Villegas HPI: 08/31 22:51 This 59 yrs old Female presents to ER via Unassigned with complaints of sp4 Suicidal Ideation. 09/01 01:20 59-year-old female presents with complaint of cuts on her wrist and suicidal ideation.. sp4 She presented with EMS. Historical: - Allergies: 08/31 22:45 GABAPENTIN; kj2 - PMHx: 09/01 06:43 Chronic obstructive lung disease; Hepatitis; ha1 - PSHx: 06:43 Ovary removal; Tonsillectomy; ha1 - Immunization history:: Adult Immunizations unknown. - Infectious Disease History:: Denies. - Social history:: Smoking status: unknown. - Family history:: not pertinent. ROS: 01:20 Constitutional: Negative for fever, chills, and weight loss, positive depression sp4 positive emotional upset positive suicidal ideation 01:20 All other systems are negative, Exam: 01:21 Constitutional: This is a well developed, well nourished patient who is awake, alert, sp4 and in no acute distress. Head/Face: Normocephalic, atraumatic. Eyes: Pupils equal round and reactive to light, extra-ocular motions intact. Lids and lashes normal. Conjunctiva and sclera are not injected. Cornea within normal limits. Periorbital areas with no swelling, redness, or edema. ENT: Nares patent. No nasal discharge, no septal abnormalities noted. Tympanic membranes are normal and external auditory canals are clear. Oropharynx with no redness, swelling, or masses, exudates, or evidence of obstruction, uvula midline. Mucous membranes moist. Neck: Trachea midline, no thyromegaly or masses palpated, and no cervical lymphadenopathy. Supple, full range of motion without nuchal rigidity, or vertebral point tenderness. Chest/axilla: Normal chest wall appearance and motion. Nontender with no deformity. No lesions are appreciated. Cardiovascular: Regular rate and rhythm with a normal S1 and S2. No gallops, murmurs, or rubs. Normal PMI, no JVD. No pulse deficits. Respiratory: Lungs have equal breath sounds bilaterally, clear to auscultation and percussion. No rales, rhonchi or wheezes noted. No increased work of breathing, no retractions or nasal flaring. Abdomen/GI: Soft, with normal bowel sounds. No distension or tympany. No guarding or rebound. No evidence of tenderness throughout. Female : Normal external genitalia. Skin: Warm, dry with normal turgor. Normal color with no rashes, no lesions, and no evidence of cellulitis. Bilateral shallow abrasions to the wrists without lacerations amenable to suture MS/ Extremity: Pulses equal, no cyanosis. Neurovascular intact. Full, normal range of motion. Neuro: Awake and alert, GCS 15, oriented to person, place, time, and situation. Cranial nerves II-XII grossly intact. Motor strength 5/5 in all extremities. Sensory grossly intact. Psych: Awake, alert, with orientation to person, place and time. Behavior, mood, and affect are within normal limits 09/02 02:14 ECG was reviewed by the Attending Physician. EKG 2355 normal sinus rhythm rate 72, sp4 no ectopy otherwise normal EKG. Vital Signs: 08/31 22:45 BP 124 / 103; Pulse 96; Resp 20; Temp 98.2; Pulse Ox 96% on R/A; kj2 22:45 Weight 63.96 kg; Height 5 ft. 1 in. ; kj2 09/01 07:51 BP 118 / 84; Pulse 80; Resp 16; Temp 97; Pulse Ox 98% ; ko1 08/31 22:45 Body Mass Index 26.64 (63.96 kg, 154.94 cm) kj2 Pratik Coma Score: 01:21 Eye Response: spontaneous(4). Motor Response: obeys commands(6). Verbal Response: sp4 oriented(5). Total: 15. MDM: 08/31 22:53 Medical Screening Exam initiated sp4 09/01 07:33 Differential diagnosis: drug withdrawal. acute psychotic break, depression, psychosis sp4 secondary to non-compliance. Data reviewed: vital signs, nurses notes, EMS record, lab test result(s), EKG. Consideration of Admission/Observation Escalation of care including admission/observation considered. ED course: Patient was accepted at [facility]. Stable for transfer with EMS. 08/31 22:53 Order name: Acetaminophen; Complete Time: 07:33 sp4 08/31 22:53 Order name: Basic Metabolic Panel; Complete Time: 07:33 sp4 08/31 22:53 Order name: CBC with Diff sp4 08/31 22:53 Order name: ETOH Level; Complete Time: 07:33 sp4 08/31 22:53 Order name: Hepatic Function; Complete Time: 07:33 sp4 08/31 22:53 Order name: PT-INR; Complete Time: 07:33 sp4 08/31 22:53 Order name: Test, Urine; Complete Time: 02:54 sp4 08/31 22:53 Order name: Ptt, Activated; Complete Time: 07:33 sp4 08/31 22:53 Order name: Salicylate; Complete Time: 07:33 sp4 08/31 22:53 Order name: Urinalysis w/ reflexes; Complete Time: 02:54 sp4 08/31 22:53 Order name: Urine Drug Screen; Complete Time: 02:54 sp4 09/01 06:40 Order name: CBC Smear Scan EDMS 08/31 22:53 Order name: EKG; Complete Time: 22:54 sp4 08/31 22:53 Order name: EKG - Nurse/Tech; Complete Time: 23:56 sp4 08/31 22:53 Order name: IV Saline Lock; Complete Time: 23:56 sp4 08/31 22:53 Order name: Labs collected and sent; Complete Time: 23:56 sp4 08/31 22:53 Order name: Suicide Precautions; Complete Time: 01:45 sp4 08/31 22:53 Order name: Suicide Screening ([place]); Complete Time: 01:45 sp4 EC:55 Rate is 72 beats/min. Rhythm is regular, Normal Sinus Rhythm. QRS [place] is Normal. [place] sp4 interval is normal. QRS interval is normal. QT interval is normal. No Q waves. T waves are Normal. No ST changes noted. Clinical impression: No evidence of ischemia. Interpreted by me. Reviewed by me. Administered Medications: 00:16 Drug: Geodon IM 20 mg IM once Route: IM; Site: left gluteus; kj2 00:16 Follow up: Response: No adverse reaction kj2 00:42 Follow up: Response: No adverse reaction kj2 Disposition Summary: 02/04/25 07:38 Transfer Ordered Notes: Transfer Location: [facility] Facility sp4 Reason: Higher level of care sp4 Condition: Stable sp4 Problem: new sp4 Symptoms: have improved sp4 Accepting Physician: Attending at [facility](09/01/24 07:54) ko1 Diagnosis - Depressive disorder with exacerbation, impulse control disorder, suicide attempt, sp4 bilateral wrist abrasions, alcohol abuse with intoxication Discharge Instructions: - Discharge Summary Sheet rv1 Forms: - SBAR form rv1 - Medication Reconciliation Form sp4 Signatures: Dispatcher [employer] Kristina Montgomery RN RN ha1 Irene Rodriguez RN RN ko1 Rohith Villegas MD MD sp4 Yuni Hartman RN RN kj2 Corrections: (The following items were deleted from the chart) 07:54 07:38 Attending at [facility] sp4 ko1
[2024-09-01 08:16] VITALS: BP 118/84; TEMP 97; O2SAT 98
[2024-09-01 08:58] LABS: White Blood Cell Scan OK (OK)
[2024-09-01 08:59] LABS: Blood Morphology Comment NOT SEEN (NOT SEEN); Platelet Estimate ADEQ; Platelets Clumped FIBRIN STRANDS.
--- NOTE | 2024-09-01 12:10 | EKG ---
Test Date: 2024-08-31 Test Time: 23:55:22 Location And Measurement Technician: BRODY MEASUREMENT RESULTS: Intervals: Rate: 72 ND: 156 QRSD: 86 QT: 420 QTc: 459 [place]: P: 77 ND: 156 QRS: 94 T: 70 INTERPRETIVE STATEMENTS: Normal sinus rhythm Normal ECG Compared to ECG 03/07/2024 22:12:49 Left anterior fascicular block no longer present Myocardial infarct finding no longer present Electronically Signed On 09-01-24 12:09:34 RECYCLER by Mariano Perez
== END 2024-09-01 07:54 ==
LOC: ER 22:45
DX: S60.812A Abrasion of left wrist, initial encounter (principal); S60.811A Abrasion of right wrist, initial encounter; X78.9XXA Intentional self-harm by unspecified sharp object, initial encounter; F32.A Depression, unspecified; F63.9 Impulse disorder, unspecified; F10.129 Alcohol abuse with intoxication, unspecified
CPT/HCPCS: 93005; 85025; 81001; 80048; 36415; 81025; 85610; 80076; 85730; 80307; 80143; 80179; 82077; J3486

== ENCOUNTER 2024-09-22 04:05 | Emergency (ER) | payer OTHER ==
--- OUTSIDE RECORDS SUMMARY | 2024-09-22 04:08 | XMS REPORT | Clinical Summary ---
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
--- NOTE | 2024-09-22 04:54 | EDPHYS ---
Physician Documentation [facility] Name: Jeanette Villalta Age: 59 yrs Sex: Female : 1965 Arrival Date: 09/22/2024 Time: 04:05 Bed 7 Private MD: ED Physician Raquel Gregg HPI: 09/22 04:46 This 59 yrs old Female presents to ER via Ambulatory with complaints of Leg Pain. sp3 04:46 59-year-old female with history of COPD and hepatitis presents with right thigh pain sp3 concerned with possible blood clot secondary to "getting blood drawn from her foot the other day". Patient has no other symptoms including redness, swelling, edema, joint pain, chest pain, shortness of breath, or any other signs or symptoms on ROS at this time.. Historical: - Allergies: 04:22 GABAPENTIN; ha1 04:22 Prednisone; ha1 - Home Meds: 04:22 aspirin 81 mg Oral tablet [Active]; ha1 - PMHx: 04:22 Chronic obstructive lung disease; Hepatitis; ha1 - PSHx: 04:22 Ovary removal; Tonsillectomy; ha1 - Immunization history:: Adult Immunizations up to date. - Infectious Disease History:: Denies. - Social history:: Smoking status: Patient reports the use of cigarette tobacco products, smokes one-half pack cigarettes per day. ROS: 04:47 Constitutional: Negative for fever, chills, and weight loss, Eyes: Negative for injury, sp3 pain, redness, and discharge, ENT: Negative for injury, pain, and discharge, Neck: Negative for injury, pain, and swelling, Cardiovascular: Negative for chest pain, palpitations, and edema, Respiratory: Negative for shortness of breath, cough, wheezing, and pleuritic chest pain, Abdomen/GI: Negative for abdominal pain, nausea, vomiting, diarrhea, and constipation, Back: Negative for injury and pain, Skin: Negative for injury, rash, and discoloration, Neuro: Negative for headache, weakness, numbness, tingling, and seizure, Psych: Negative for depression, anxiety, suicide ideation, homicidal ideation, and hallucinations, Allergy/Immunology: Negative for hives, rash, and allergies, Endocrine: Negative for neck swelling, polydipsia, polyuria, polyphagia, and marked weight changes, Hematologic/Lymphatic: Negative for swollen nodes, abnormal bleeding, and unusual bruising, 04:47 All other systems are negative, Exam: 04:47 Constitutional: This is a well developed, well nourished patient who is awake, alert, sp3 and in no acute distress. Head/Face: Normocephalic, atraumatic. Eyes: Pupils equal round and reactive to light, extra-ocular motions intact. Lids and lashes normal. Conjunctiva and sclera are non-icteric and not injected. Cornea within normal limits. Periorbital areas with no swelling, redness, or edema. ENT: Nares patent. No nasal discharge, no septal abnormalities noted. External auditory canals are clear. Oropharynx with no redness, swelling, or masses, exudates, or evidence of obstruction, uvula midline. Mucous membranes moist. Neck: Trachea midline, no thyromegaly or masses palpated, and no cervical lymphadenopathy. Supple, full range of motion without nuchal rigidity, or vertebral point tenderness. No Meningismus. Chest/axilla: Normal chest wall appearance and motion. Nontender with no deformity. No lesions are appreciated. Cardiovascular: Regular rate and rhythm with a normal S1 and S2. No gallops, murmurs, or rubs. Normal PMI, no JVD. No pulse deficits. Respiratory: Lungs have equal breath sounds bilaterally, clear to auscultation and percussion. No rales, rhonchi or wheezes noted. No increased work of breathing, no retractions or nasal flaring. Abdomen/GI: Soft, non-tender, with normal bowel sounds. No distension or tympany. No guarding or rebound. No evidence of tenderness throughout. Back: No spinal tenderness. No costovertebral tenderness. Full range of motion. Skin: Warm, dry with normal turgor. Normal color with no rashes, no lesions, and no evidence of cellulitis. Neuro: Awake and alert, GCS 15, oriented to person, place, time, and situation. Cranial nerves II-XII grossly intact. Motor strength 5/5 in all extremities. Sensory grossly intact. Cerebellar exam normal. Normal gait. Psych: Awake, alert, with orientation to person, place and time. Behavior, mood, and affect are within normal limits. 04:47 Musculoskeletal/extremity: Mild pain to right medial thigh. No significant swelling noted. Distal neurovascular exam is normal.. Vital Signs: 04:30 BP 110 / 64; Pulse 83; Resp 17 S; Temp 97.5(T); Pulse Ox 98% on R/A; Weight 65.77 kg; ha1 Height 5 ft. 1 in. ; 04:30 Body Mass Index 27.40 (65.77 kg, 154.94 cm) ha1 MDM: 04:12 Medical Screening Exam initiated sp3 04:47 Data reviewed: vital signs, nurses notes, radiologic studies. ED course: 59-year-old sp3 female with right thigh pain. Differential diagnosis includes muscle cramp, muscle strain, joint pain, and to a lesser degree DVT. Clinically not highly suspicious for DVT. Will obtain ultrasound and if negative safely discharge patient home to PCP follow-up.. 04:53 ED course: Ultrasound negative we will safely discharge patient home at this time.. sp3 09/22 04:25 Order name: US Extremity Venous Unilateral Ltd sp3 Administered Medications: No medications were administered Disposition Summary: 09/22/24 04:53 Discharge Ordered Notes: Location: Home sp3 Condition: Stable sp3 Diagnosis - Right thigh pain, muscle cramp sp3 Followup: sp3 - With: Private Physician - When: Upon discharge from the Emergency Department - Reason: Continuance of care Discharge Instructions: - Discharge Summary Sheet sp3 - Muscle Cramps and Spasms sp3 Forms: - Medication Reconciliation Form sp3 - Antibiotic Education sp3 - Prescription Opioid Use sp3 - Patient Portal Instructions sp3 - Leadership Thank You Letter sp3 - Family Work Release ha1 Signatures: Dispatcher [employer] EDRaquel Noble MD MD sp3 Kristina Infante RN RN ha1
--- NOTE | 2024-09-22 04:54 | ER ---
Nurse's Notes [facility] Name: Jeanette Villalta Age: 59 yrs Sex: Female : 1965 Arrival Date: 09/22/2024 Time: 04:05 Bed 7 Private MD: Diagnosis: Right thigh pain, muscle cramp Presentation: 09/22 04:30 Chief complaint: Patient states: PAIN AT THE RIGHT THIGH. Coronavirus screen: Client ha1 denies travel out of the [place] in the last 14 days. Ebola Screen: No symptoms or risks identified at this time. Initial Sepsis Screen: Does the patient meet any 2 criteria? No. Patient's initial sepsis screen is negative. Does the patient have a suspected source of infection? No. Patient's initial sepsis screen is negative. Risk Assessment: Do you want to hurt yourself or someone else? Patient reports no desire to harm self or others. Onset of symptoms was September 22, 2024. 04:30 [facility] 04[facility]30 Acuity: [place] 4 ha1 Triage Assessment: 04:22 General: Appears comfortable, Behavior is calm, cooperative. Pain: Complains of pain in ha1 medial aspect of right thigh Pain currently is 6 out of 10 on a pain scale. Quality of pain is described as aching. Neuro: Level of Consciousness is awake, alert, obeys commands, Oriented to person, place, time, situation. Cardiovascular: Capillary refill < 3 seconds Patient's skin is warm and dry. Respiratory: Airway is patent Respiratory effort is even, unlabored, Respiratory pattern is regular, symmetrical. GI: No signs and/or symptoms were reported involving the gastrointestinal system. Derm: Skin is pink, warm \T\ dry. Musculoskeletal: Circulation, motion, and sensation intact. Range of motion: intact in all extremities. Historical: - Allergies: 04:22 GABAPENTIN; ha1 04:22 Prednisone; ha1 - Home Meds: 04:22 aspirin 81 mg Oral tablet [Active]; ha1 - PMHx: 04:22 Chronic obstructive lung disease; Hepatitis; ha1 - PSHx: 04:22 Ovary removal; Tonsillectomy; ha1 - Immunization history:: Adult Immunizations up to date. - Infectious Disease History:: Denies. - Social history:: Smoking status: Patient reports the use of cigarette tobacco products, smokes one-half pack cigarettes per day. Screenin:03 [facility] ED Fall Risk Assessment (Adult) History of falling in the last 3 months, cp4 including since admission No falls in past 3 months (0 pts) Confusion or Disorientation No (0 pts) Intoxicated or Sedated No (0 pts) Impaired Gait No (0 pts) Mobility Assist Device Used No (0 pt) Altered Elimination No (0 pt) Score/Fall Risk Level 0 - 2 = Low Risk Oriented to surroundings, Maintained a safe environment, Assessed \T\ reinforced patient's understanding of fall precautions, Hourly rounding (assess needs \T\ fall precautionary measures) done. Abuse screen: Denies threats or abuse. Denies injuries from another. Nutritional screening: No deficits noted. Tuberculosis screening: No symptoms or risk factors identified. Assessment: 05:03 General: Appears in no apparent distress. comfortable, Behavior is calm, cooperative, cp4 appropriate for age. Pain: Complains of pain in right leg and medial aspect of right thigh Pain does not radiate. Pain currently is 10 out of 10 on a pain scale. Neuro: Level of Consciousness is awake, alert, obeys commands, Oriented to person, place, time, situation. Cardiovascular: Patient's skin is warm and dry. Respiratory: Airway is patent Respiratory effort is even, unlabored. GI: No signs and/or symptoms were reported involving the gastrointestinal system. : No signs and/or symptoms were reported regarding the genitourinary system. EENT: No signs and/or symptoms were reported regarding the EENT system. Derm: No signs and/or symptoms reported regarding the dermatologic system. Musculoskeletal: No signs and/or symptoms reported regarding the musculoskeletal system. Vital Signs: 04:30 BP 110 / 64; Pulse 83; Resp 17 S; Temp 97.5(T); Pulse Ox 98% on R/A; Weight 65.77 kg; ha1 Height 5 ft. 1 in. ; 04:30 Body Mass Index 27.40 (65.77 kg, 154.94 cm) ha1 ED Course: 04:10 Patient arrived in ED. gm2 04:12 Raquel Gregg MD is Attending Physician. sp3 04:33 Triage completed. ha1 04:58 Essie Barreto is Primary Nurse. cp4 04:59 US Extremity Venous Unilateral Ltd In Process Unspecified. EDMS 05:03 Bed in low position. Call light in reach. Side rails up X 1. Provided Education on: cp4 muscle cramps. 05:03 No provider procedures requiring assistance completed. Patient did not have IV access cp4 during this emergency room visit. 05:05 Arm band placed on right wrist. Patient placed in waiting room. cp4 Administered Medications: No medications were administered Medication: 05:03 VIS not applicable for this client. cp4 Outcome: 04:53 Discharge ordered by MD. [email or web address] 05:03 Discharged to home ambulatory, with family, ha1 05:03 Condition: stable 05:03 Discharge instructions given to patient, Instructed on discharge instructions, follow up and referral plans. Demonstrated understanding of instructions, follow-up care, 05:06 Patient left the ED. cp4 Signatures: Dispatcher [employer] EDMS Raquel Gregg MD MD sp3 Kristina Infante, RN RN ha1 Essie Barreto cp4 Ngozi Rosales 2
[2024-09-22 05:10] VITALS: BP 110/64; TEMP 97.5; O2SAT 98
--- NOTE | 2024-09-22 06:49 | RAD REPORT ---
US EXTREMITY VEINS UNILATERAL CLINICAL INDICATION: Female, 59 years old.PAIN TECHNIQUE: Complete duplex sonography of the lower extremity veins was performed of the affected limb . The examination included compression for vein patency, color Doppler imaging and flow augmentation in response to distal compression of the distal external iliac, common femoral, femoral, popliteal, peroneal, tibial and great saphenous veins. [id number]. COMPARISON: No prior exams FINDINGS: Duplex sonography imaging demonstrates all deep veins examined to be fully compressible with spontane ous, phasic and augmented flow in the affected limb. IMPRESSION: No evidence of deep venous thrombosis in the right lower extremity. Electronically signed by: Dusty Bear MD 09/22/2024 06:16 AM [facility] Transcribed Date/Time: 09/22/2024 6:48 AM
== END 2024-09-22 05:06 | disposition home or self-care (01) ==
LOC: ER 04:05
DX: R25.2 Cramp and spasm (principal); F17.210 Nicotine dependence, cigarettes, uncomplicated; Z79.82 Long term (current) use of aspirin
CPT/HCPCS: 93971; 99282